=== PATIENT | female | born 1955 | race Caucasian/White ===

== ENCOUNTER 2020-11-20 13:59 | Outpatient (CLI) | payer BC, SELFPAY ==
--- NOTE | ~2020-11-20 | MM_ITS ---
EXAMINATION: MM screening radha BI w hugo HISTORY: Screening mammogram, family history of breast cancer in her daughter. TECHNIQUE: Craniocaudal and mediolateral oblique 3-D tomosynthesis images were obtained and synthetic 2-D images were generated. CAD analysis was submitted and interpreted. COMPARISON: 06/16/2019, 07/22/2017, 04/24/2016 BREAST PARENCHYMAL COMPOSITION: There are scattered areas of fibroglandular density. FINDINGS: RIGHT BREAST: There is a possible mass in the posterior third of the upper outer quadrant of the righ t breast. LEFT BREAST: There is no evidence of suspicious mass, calcification, or architectural distortion to s uggest malignancy. There has been no significant interval change. IMPRESSION: 1. Possible right breast mass. 2. Additional mammographic views and possible breast ultrasound are recommended. BI-RADS Category 0: Incomplete: Needs additional imaging evaluation. Reviewed, dictated and finalized at location A. IMPRESSION: 1. Possible right breast mass. 2. Additional mammographic views and possible breast ultrasound are recommended . BI-RADS Category 0: Incomplete: Needs additional imaging evaluation.
== END 2020-11-20 14:00 | disposition home or self-care (01) ==
LOC: ANHIMG 14:04
PROVIDERS: PCP Internal Medicine
DX: Z12.31 Encounter for screening mammogram for malignant neoplasm of breast (principal); R92.8 Other abnormal and inconclusive findings on diagnostic imaging of breast
CPT/HCPCS: 77063; 77067

== ENCOUNTER 2020-12-13 12:25 | Outpatient (CLI) | payer BC, SELFPAY ==
--- NOTE | ~2020-12-13 | MMUS_ITS ---
EXAMINATION: MM diagnostic mammo unilat RT, US breast RT limited HISTORY: Possible right breast mass on screening mammogram TECHNIQUE: Additional 3-D tomosynthesis images of the right breast were performed and synthetic 2-D i mages were generated. CAD analysis was submitted and interpreted. High resolution limited right breas t ultrasound was performed. COMPARISON: 11/21/2019, 06/16/2019, 07/22/2017, 04/24/2016 FINDINGS: MAMMOGRAPHIC FINDINGS: There is architectural distortion in the posterior third of the upper outer quadrant of the breast at the 11:00 location 12 cm from the nipple. No definite mass or suspicious calcification is identified . ULTRASOUND: There is no evidence of focal abnormal solid or cystic mass in the vicinity of the mammographic findi ng in question. IMPRESSION: 1. Architectural distortion in the upper-outer quadrant of the right breast. 2. Tomosynthesis guided right breast biopsy is recommended. BI-RADS category 4, suspicious findings. Reviewed, dictated and finalized at location A. IMPRESSION: 1. Architectural distortion in the upper-outer quadrant of the right breast. 2. Tomosynthesis guided right breast biopsy is recommended. BI-RADS category 4, suspicious findings.
== END 2020-12-13 12:26 | disposition home or self-care (01) ==
LOC: ANHIMG 12:29
PROVIDERS: PCP Internal Medicine
DX: R92.8 Other abnormal and inconclusive findings on diagnostic imaging of breast (principal)
CPT/HCPCS: 76642; 77065

== ENCOUNTER 2022-01-19 13:25 | Emergency (ER) | payer BC, SELFPAY ==
--- NOTE | ~2022-01-19 | XR_ITS ---
XR chest 1V portable DATE: 01/19/2022 14:13 INDICATION: Cough, fever, body aches for one day. Sore throat, earaches for a week TECHNIQUE: Portable upright AP chest on 01/19/2022 at 1411 hours COMPARISON: October 11, 2014 PA and lateral chest FINDINGS: Normal heart size. No hilar or mediastinal enlargement. Mild infiltrate or atelectasis in the left lower lung. No pulmonary infiltrate or consolidation, pleu ral effusion or pulmonary mass congestion or pneumothorax is noted otherwise. IMPRESSION: Mild infiltrate or atelectasis in the left lower lung Reviewed, dictated and finalized at location A.
[2022-01-19 13:30] VITALS: BP 122/59; PULSE 82; RESP 16; TEMP 36.8; O2SAT 97
--- NOTE | 2022-01-19 13:46 | ED.GENADULT ---
HPI - General Adult General Chief complaint: Dizziness Stated complaint: fever, sore throat, ear pain, headache, dizzy History of Present Illness HPI narrative: Irina is a 66F with a PMH of depression, thyroid cancer s/p surgery, HTN, and GERD that presented to the ED with a week of headache, body aches, sinus congestion, runny nose and sore throat. Yesterday she started having a productive cough and fevers up to 100.7. It came down with Tylenol. There is no CP, N/V or syncope. Related Data Home Medications Medication Instructions Recorded Confirmed escitalopram oxalate 20 mg tablet 20 tablet PO DAILY 01/19/22 01/19/22 gabapentin 600 mg tablet 600 mg PO DAILY 01/19/22 01/19/22 levothyroxine 50 mcg tablet 1.5 tablet PO DAILY 01/19/22 01/19/22 lisinopril 20 20 tablet PO DAILY 01/19/22 01/19/22 mg-hydrochlorothiazide 12.5 mg tablet nortriptyline 25 mg capsule 25 cap PO DAILY 01/19/22 01/19/22 pantoprazole 40 mg tablet,delayed 40 tablet PO DAILY 01/19/22 01/19/22 release trazodone 300 mg tablet 300 tablet PO BID 01/19/22 01/19/22 Allergies Allergy/AdvReac Type Severity Reaction Status Date / Time hydrocodone Allergy Severe Other Verified 01/19/22 13:41 morphine Allergy Severe Other Verified 01/19/22 13:41 Penicillins Allergy Unknown Itching Verified 01/19/22 13:41 Review of Systems Constitutional: Constitutional: Reports chills, Reports fatigue, Reports fever(s) and Reports weakness Eyes: Eyes: Reports no additional eye complaints ENT: Reports as per HPI Cardiovascular: Cardiovascular: Reports no additional cardiovascular complaints Respiratory: Respiratory: Reports as per HPI Gastrointestinal: Gastrointestinal: Reports no additional gastrointestinal complaints Genitourinary: Genitourinary: Reports no additional female genitourinary complaints Musculoskeletal: Musculoskeletal: Reports no additional musculoskeletal complaints Integumentary/Breasts: Skin/Breast: Reports system reviewed and no additional complaints, except as docu Neurologic: Reports system reviewed and no additional complaints, except as documented Psychiatric: Psychiatric: Reports no additional psychiatric complaints Endocrine: Endocrine: Reports no additional endocrine complaints Hematologic/Lymphatic: Hematologic/Lymphatic: Reports no additional hematologic/lymphatic complaints Allergic/Immunologic: Allergic/Immunologic: Reports no additional allergic/immunologic complaints Exam Const: Nutritional Appearance: well nourished Other: mild distress HENMT: Head: normal to inspection General nose exam: Normal external nose present Other: erythematous nasal turbinates, moist mucous membranes, posterior pharynx cobblestoning Eyes: Conjunctivae: conjunctivae normal Pupils: Equal, round and reactive pupils present Neck: Other: right anterior cervical lymphadenopathy and sub mandibular lymphadenopathy Chest: Chest palpation & inspection: normal inspection of the chest Resp: Effort & Inspection: normal respiratory effort Auscultation: clear to auscultation bilaterally Cardio: Rate: regular rate Rhythm: regular rhythm GI: Other: No tenderness or guarding Skin: General skin exam: normal color Neuro: General: patient oriented x3, moves all extremities and no meningeal signs Psych: Mental Status: mental status grossly normal Course Course Emergency Course: Labs showed leukocytosis XR chest 1V portable DATE: 01/19/2022 14:13 INDICATION: Cough, fever, body aches for one day. Sore throat, earaches for a week? TECHNIQUE: Portable upright AP chest on 01/19/2022 at 1411 hours? COMPARISON: October 11, 2014 PA and lateral chest? FINDINGS: Normal heart size. No hilar or mediastinal enlargement. Mild infiltrate or atelectasis in the left lower lung. No pulmonary infiltrate or consolidation, pleural effusion or pulmonary mass congestion or pneumothorax is noted otherwise.? IMPRESSION: Mild infiltrate or atelectasis in the
[2022-01-19 14:02] LABS: Basophils Absolute Auto 0.04 K/mm3 (0.00-0.10); Basophils Percent Auto 0.3 % (0.0-1.0); Eosinophils Absolute Auto 0.06 K/mm3 (0.02-0.50); Eosinophils Percent Auto 0.5 % (1.0-6.0); Hematocrit 35.3 % (35.0-49.0); Hemoglobin 11.9 g/dL (12.0-15.0); Immature Granulocyte Absolute 0.05 K/mm3 (0.00-0.00); Immature Granulocyte Percent A 0.4 % (0.0-0.0); Lymphocytes Absolute Auto 1.89 K/mm3 (1.10-4.50); Lymphocytes Percent Auto 14.4 % (18.0-42.0); Mean Corpuscular HGB Conc 33.7 g/dL (32.0-36.0); Mean Corpuscular Hemoglobin 34.3 pg (27.0-31.0); Mean Corpuscular Volume 101.7 fL (78.0-102.0); Mean Platelet Volume 8.5 fl (9.2-11.8); Monocytes Absolute Auto 0.95 K/mm3 (0.10-0.90); Monocytes Percent Auto 7.3 % (2.0-11.0); Neutrophils Absolute Auto 10.1 K/mm3 (1.7-7.2); Neutrophils Percent Auto 77.1 % (50.0-70.0); Platelet Count Result 246 K/mm3 (150-420); Red Blood Count 3.47 M/mm3 (4.20-5.40); Red Cell Distribution Width 12.7 % (11.6-14.4); White Blood Count 13.1 K/mm3 (4.8-10.8)
[2022-01-19 14:18] LABS: Alanine Aminotransferase 12 U/L (14-59); Albumin Level 2.8 g/dL (3.4-5.0); Alkaline Phosphatase 60 U/L (46-116); Anion Gap 4 mmol/L (8-16); Aspartate Amino Transferase < 10 U/L (15-37); Bilirubin,Total 0.3 mg/dL (0.00-1.00); Blood Urea Nitrogen 14 mg/dL (7-18); Calcium 8.5 mg/dL (8.5-10.1); Carbon Dioxide 30 mmol/L (21-32); Chloride 101 mmol/L (98-108); Estimated CRCL calculation 51 ml/min; Estimated Glomerular Filt Rate > 60; Glucose 105 mg/dL (70-99); Osmolality Calculated 280 mOsm/kg (285-295); Potassium 3.3 mmol/L (3.5-5.1); Sodium 135 mmol/L (136-145)
[2022-01-19 14:26] LABS: SARS-CoV-2 Ag Negative (Negative)
[2022-01-19 14:30] VITALS: BP 125/66; PULSE 84; RESP 16; TEMP 36.8; O2SAT 97
[2022-01-19 14:31] LABS: Influenza Control Valid (Valid)
[2022-01-19] MEDS: levoFLOXacin TAB 500 MG, levoFLOXacin TAB 250 MG 750 MG PO (14:50)
[2022-01-19] MEDS: KETOROLAC 30 MG/ML VIAL (*BKC) IM (14:50)
== END 2022-01-19 14:55 | disposition home or self-care (01) ==
PROVIDERS: Emergency Provider Family Medicine; PCP Internal Medicine
DX: J18.9 Pneumonia, unspecified organism (principal); Z20.822 Contact with and (suspected) exposure to COVID-19
CPT/HCPCS: 71045; 80053; 85025; 87081; 87426; 87804; 87880; 96372; 99283; A9270; C9803; J1885

== ENCOUNTER 2022-07-01 11:37 | Emergency (ER) | payer MEDICARE, OTHER, SELFPAY ==
[2022-07-01] VITALS (7 sets, daily range): BP systolic 107–142; BP diastolic 64–79; PULSE 73–98; RESP 18–22; TEMP 36.1; O2SAT 95–99
--- NOTE | ~2022-07-01 | XR_ITS ---
EXAMINATION: XR chest 1V portable INDICATION: Cough and shortness of breath TECHNIQUE: Portable AP chest at 1214 hours COMPARISON: 01/19/2022 FINDINGS: The lungs are free of acute opacities. A calcified nodule of the left lung is consistent wi th old granulomatous disease. No pleural effusion or pneumothorax. The cardiomediastinal silhouette i s normal. The visualized bones and soft tissues are unremarkable. Surgical clips in the right upper quadrant are likely from prior cholecystectomy. IMPRESSION: 1. No acute cardiopulmonary abnormality. Reviewed, dictated and finalized at location B. TION MECHANIC
--- NOTE | 2022-07-01 11:56 | ECG_ITS ---
Measurements Intervals [place] Rate: 83 P: 52 [place]: 124 QRS: 59 QRSD: 80 T: 73 QT: 364 QTc: 429 Interpretive Statements SINUS RHYTHM WITH SINUS ARRHYTHMIA BASELINE WANDER- I, II, III, AVR, AVL, AVF, V1-V6 NORMAL ECG NO PREVIOUS ECG AVAILABLE FOR COMPARISON Electronically Signed On 07-01-2022 13:27:26 [address] LIGHT REPAIRER by Franco Savage D.O.
--- NOTE | 2022-07-01 12:00 | ED.GENADULT ---
HPI - General Adult General Chief complaint: Upper Respiratory Infection Stated complaint: COUGH Time Seen by Provider: 07/01/22 11:51 History of Present Illness HPI narrative: Irina is a 66F with a PMH of depression, thyroid cancer s/p surgery, HTN, tobacco abuse and GERD that presented to the ED with a cough, and dyspnea. She had pneumonia in April, and had the flu 10 days ago. She got better but started to have the cough a few days ago and it has become worse. Her primary care doctor started her on steroids but these have not helped. There is no CP, lightheadedness, syncope, nausea or vomiting. Related Data Home Medications Medication Instructions Recorded Confirmed escitalopram oxalate 20 mg tablet 20 tablet PO DAILY 01/19/22 07/01/22 gabapentin 600 mg tablet 600 mg PO DAILY 01/19/22 07/01/22 levothyroxine 50 mcg tablet 1.5 tablet PO DAILY 01/19/22 07/01/22 lisinopril 20 20 tablet PO DAILY 01/19/22 07/01/22 mg-hydrochlorothiazide 12.5 mg tablet nortriptyline 25 mg capsule 25 cap PO DAILY 01/19/22 07/01/22 pantoprazole 40 mg tablet,delayed 40 tablet PO DAILY 01/19/22 07/01/22 release trazodone 300 mg tablet 300 tablet PO BID 01/19/22 07/01/22 Allergies Allergy/AdvReac Type Severity Reaction Status Date / Time hydrocodone Allergy Severe Other Verified 07/01/22 11:55 morphine Allergy Severe Other Verified 07/01/22 11:55 Penicillins Allergy Unknown Itching Verified 07/01/22 11:55 Review of Systems Review of Systems: All systems reviewed & are unremarkable except as noted in HPI and below Exam Const: General: healthy appearing and no acute distress Nutritional Appearance: well nourished Orientation/consciousness: patient oriented x3 HENMT: Head: normal to inspection Ears: external ears normal Face/Nose/Sinus: Normal external nose present Eyes: Conjunctivae: conjunctivae normal Pupils: Equal, round and reactive pupils present Neck: Neck: normal visual inspection Chest: Chest palpation & inspection: normal inspection of the chest Resp: Other: Increased respiratory effort with a constant cough, diffuse wheezing and prolonged expiratory phase Cardio: Rate: tachycardic Rhythm: regular rhythm GI: Inspection: non-distended GI Palp: Yes Soft to palpation and No Tenderness to palpation present (GI) Skin: General skin exam: normal color Rashes: no rashes Neuro: General: patient oriented x3 and moves all extremities Extrem: General: normal to inspection Psych: Mental Status: mental status grossly normal Course Course Emergency Course: EKG showed NSR with a rate of 83, normal axis and no ST elevation/depression. Interpretation is difficult with wandering baseline. EXAMINATION: XR chest 1V portable INDICATION: Cough and shortness of breath TECHNIQUE: Portable AP chest at 1214 hours COMPARISON: 01/19/2022 FINDINGS: The lungs are free of acute opacities. A calcified nodule of the left lung is consistent with old granulomatous disease. No pleural effusion or pneumothorax. The cardiomediastinal silhouette is normal. The visualized bones and soft tissues are unremarkable.? Surgical clips in the right upper quadrant are likely from prior cholecystectomy. IMPRESSION: 1. No acute cardiopulmonary abnormality. Labs showed slight leukocytosis but were largely unremarkable. Flu and COVID were negative. She was given 2 breathing treatments, prednisone and azithromycin. We discussed admission for continued treatments vs going home with inhalers. She felt safe going home and was able to tolerate PO. Vital Signs Vital signs: Vital Signs Temperature 96.9 F L 07/01/22 11:40 Pulse Rate 92 07/01/22 11:40 Respiratory Rate 20 07/01/22 11:40 Blood Pressure 142/79 H 07/01/22 11:40 Pulse Oximetry 95 07/01/22 11:40 Oxygen Delivery Room Air 07/01/22 11:40 Temperature 96.9 F L 07/01/22 11:40 Pulse Rate 73 07/01/22 13:35 Respiratory Rate 20 07/01/22 13:35 Blood Pressure 107/64 07/01/22
[2022-07-01] MEDS: IPRATROPIUM 0.5 MG/ALBUTEROL SULFATE 2.5 MG AMPUL.NEB 3 ML INHALATION (12:05)
--- NOTE | 2022-07-01 12:21 | PC.NURSE ---
ICE CHIPS PROVIDED
[2022-07-01 12:22] LABS: Basophils Absolute Auto 0.04 K/mm3 (0.00-0.10); Basophils Percent Auto 0.3 % (0.0-1.0); Eosinophils Absolute Auto 0.03 K/mm3 (0.02-0.50); Eosinophils Percent Auto 0.3 % (1.0-6.0); Hematocrit 41.7 % (35.0-42.0); Hemoglobin 14.3 g/dL (11.7-13.8); Immature Granulocyte Percent A 0.9 % (0.0-0.0); Lymphocytes Absolute Auto 2.67 K/mm3 (1.10-4.50); Lymphocytes Percent Auto 22.9 % (18.0-42.0); Mean Corpuscular HGB Conc 34.3 g/dL (32.0-36.0); Mean Corpuscular Hemoglobin 34.1 pg (27.0-31.0); Mean Corpuscular Volume 99.5 fL (78.0-102.0); Mean Platelet Volume 8.2 fl (9.2-11.8); Monocytes Absolute Auto 0.52 K/mm3 (0.10-0.90); Monocytes Percent Auto 4.5 % (2.0-11.0); Neutrophils Absolute Auto 8.3 K/mm3 (1.7-7.2); Neutrophils Percent Auto 71.1 % (50.0-70.0); Platelet Count Result 401 K/mm3 (150-420); Red Blood Count 4.19 M/mm3 (4.20-5.40); Red Cell Distribution Width 12.3 % (11.6-14.4); White Blood Count 11.7 K/mm3 (4.8-10.8)
[2022-07-01 12:39] LABS: Lactic Acid Reflex 1.8 mmol/L (0.4-2.0)
[2022-07-01 12:42] LABS: Troponin I 4.1 ng/L (0.00-60.4)
[2022-07-01 12:43] LABS: Alanine Aminotransferase 17 U/L (14-59); Albumin Level 3.6 g/dL (3.4-5.0); Alkaline Phosphatase 52 U/L (46-116); Anion Gap 8 mmol/L (8-16); Aspartate Amino Transferase 11 U/L (15-37); Bilirubin,Total 0.3 mg/dL (0.00-1.00); Blood Urea Nitrogen 25 mg/dL (7-18); Calcium 9.5 mg/dL (8.5-10.1); Carbon Dioxide 28 mmol/L (21-32); Chloride 106 mmol/L (98-108); Estimated CRCL calculation 41 ml/min; Estimated Glomerular Filt Rate 53; Glucose 128 mg/dL (70-99); NT Pro B Type Natriuretic Pept 54 pg/mL (0-125); Osmolality Calculated 300 mOsm/kg (285-295); Potassium 3.6 mmol/L (3.5-5.1); Sodium 142 mmol/L (136-145); Total Protein 6.5 g/dL (6.4-8.2)
--- NOTE | 2022-07-01 12:56 | PC.NURSE ---
CARDIO PULMONARY NOTIFIED FOR 2ND NEB TX. PT IS SITTING ON STRETCHER IN EXAM ROOM, COUGH REMAINS, HOWEVER IS NOT FREQUENT. PT DENIES ANY NEEDS OR COMPLAINTS. WILL CONTINUE TO MONITOR.
[2022-07-01 12:57] LABS: SARS-CoV-2 RNA PCR Negative (Negative)
[2022-07-01 12:59] LABS: Influenza A QL RT-PCR Negative (Negative); Influenza B QL RT-PCR Negative (Negative)
[2022-07-01] MEDS: ALBUTEROL SULFATE NEB 2.5 MG/3 ML INH INHALATION (13:00)
--- NOTE | 2022-07-01 13:15 | PC.NURSE ---
ERP AT BEDSIDE.
[2022-07-01] MEDS: AZITHROMYCIN 250 MG TABLET 500 MG PO (13:30)
[2022-07-01] MEDS: predniSONE 40 MG, predniSONE 10 MG 50 MG PO (13:31)
== END 2022-07-01 13:35 | disposition home or self-care (01) ==
PROVIDERS: Emergency Provider Family Medicine; PCP Internal Medicine
DX: J44.9 Chronic obstructive pulmonary disease, unspecified (principal); Z20.822 Contact with and (suspected) exposure to COVID-19; R06.00 Dyspnea, unspecified; I10 Essential (primary) hypertension; K21.9 Gastro-esophageal reflux disease without esophagitis; F17.200 Nicotine dependence, unspecified, uncomplicated
CPT/HCPCS: 36415; 71045; 80053; 83605; 83880; 84484; 85025; 87502; 93005; 94640; 99283; A9270; J7512; U0003; U0005

== ENCOUNTER 2022-09-27 11:02 | Emergency (ER) | payer MEDICARE, OTHER, SELFPAY ==
[2022-09-27] VITALS (29 sets, daily range): BP systolic 104–128; BP diastolic 49–75; PULSE 59–78; RESP 16–18; TEMP 36.6–37; O2SAT 95–100
--- NOTE | ~2022-09-27 | CT_ITS ---
EXAMINATION: CT diagnostic chest w con DATE: 09/27/2022 13:25 INDICATION: Left upper chest pain, abnormal chest radiograph, history of thyroid and breast cancer TECHNIQUE: Transaxial computed tomographic images of the chest were obtained after the administration of 75 cc of Omnipaque 350 intravenous contrast. The dose-length product (DLP) was 128.23 mGy-cm. Ite rative reconstruction was used. COMPARISON: None FINDINGS: No suspicious CT correlate is identified for the reported right lung opacity on earlier diya st radiograph. There is a 3 mm nodule of the left upper lobe. The lungs are free of acute opacities. No pleural effusion or pneumothorax. There is mild atelectasis or scarring of the lingula. Changes of bilateral mastectomy are noted. There is a small pericardial effusion. There is an 11 mm cyst of the left hepatic lobe. The gallbladder is surgically absent. There is mild thoracic spondylosis. IMPRESSION: 1. No suspicious CT correlate identified for the chest radiographic finding. 2. Small pericardial effusion. Reviewed, dictated and finalized at location A. Y GO ROUND OPERATOR
--- NOTE | ~2022-09-27 | XR_ITS ---
EXAMINATION: XR chest 2V DATE: 09/27/2022 11:35 INDICATION: Left upper chest pain TECHNIQUE: PA and lateral views of the chest are obtained. COMPARISON: 07/01/2022 FINDINGS: A subtle opacity is present in the right lower lung zone on the PA view. No pleural effusio n or pneumothorax. The cardiomediastinal silhouette is normal. There is mild thoracic spondylosis. Barrera rgical clips in the right upper quadrant are likely from prior cholecystectomy. IMPRESSION: 1. Subtle opacity of the right lower lung zone on the PA view. Follow-up with CT of the chest is hubert mmended. Reviewed, dictated and finalized at location A. ORGAN TECHNICIAN IMPRESSION: 1. Subtle opacity of the right lower lung zone on the PA view. Follow-up with C T of the chest is recommended.
--- NOTE | 2022-09-27 11:09 | ED.CHESTPAIN ---
HPI - Chest Pain General Chief Complaint: Chest Pain Stated Complaint: chest pain Time Seen by Provider: 09/27/22 11:03 Source: patient and RN notes reviewed Mode of arrival: ambulatory Limitations: no limitations History of Present Illness HPI narrative: Patient states that she had some epigastric pain this morning. She has a history of esophageal spasms but then had a sharp pain in her left chest with some mild nausea and mild shortness of breath at the time. It spontaneously resolved and was only about a 4/10. She denies any diaphoresis or radiation. She does not have history of coronary artery disease. complaint: chest pain Onset (ago): hour(s) (1) Timing of current episode: episodic Prior episodes: No Onset: during rest Pain location: left chest and epigastric Pain radiation: none Pain scale (0-10): 4 Quality: aching and dull Relieving factors: nothing Exacerbating factors: nothing Associated symptoms: nausea (a little) and dyspnea (very mild) Treatment prior to arrival: none Risk Factors Coronary artery disease risk factors: smoking history Thoracic aortic dissection risk factors: none Pulmonary embolism risk factors: malignancy Related Data Home Medications Medication Instructions Recorded Confirmed escitalopram oxalate 20 mg tablet 20 tablet PO DAILY 01/19/22 09/27/22 gabapentin 600 mg tablet 600 mg PO DAILY 01/19/22 09/27/22 levothyroxine 50 mcg tablet 1.5 tablet PO DAILY 01/19/22 09/27/22 nortriptyline 25 mg capsule 25 cap PO DAILY 01/19/22 09/27/22 pantoprazole 40 mg tablet,delayed 40 tablet PO DAILY 01/19/22 09/27/22 release trazodone 300 mg tablet 300 tablet PO BID 01/19/22 09/27/22 Allergies Allergy/AdvReac Type Severity Reaction Status Date / Time hydrocodone Allergy Severe Other Verified 09/27/22 11:18 morphine Allergy Severe Other Verified 09/27/22 11:18 Penicillins Allergy Unknown Itching Verified 09/27/22 11:18 Review of Systems Review of Systems: All systems reviewed & are unremarkable except as noted in HPI and below Constitutional: Constitutional: Denies excessive sweating Cardiovascular: Cardiovascular: Denies rapid heart rate Respiratory: Respiratory: Denies cough Gastrointestinal: Gastrointestinal: Denies vomiting [facility] Past Medical History Medical History (Updated 09/27/22 @ 14:39 by Alex Bales MD) Breast cancer Mitral valve prolapse Thyroid cancer Surgical History Surgical History (Updated 09/27/22 @ 11:11 by Alex Bales MD) H/O bilateral mastectomy H/O partial thyroidectomy Exam Const: General: healthy appearing, no acute distress and alert Nutritional Appearance: well nourished and thin Orientation/consciousness: patient oriented x3 Limitations: no limitations HENMT: Head: normal to inspection Ears: external ears normal Eyes: Conjunctivae: conjunctivae normal Pupils: Equal, round and reactive pupils present EOM: EOMs intact bilaterally Neck: Neck: normal visual inspection Resp: Effort & Inspection: normal respiratory effort Auscultation: clear to auscultation bilaterally Cardio: Rate: regular rate Rhythm: regular rhythm Heart sounds: Murmur heart sound present diastolic late, decrescendo, II/ and at the base GI: GI Palp: Yes Soft to palpation and No Tenderness to palpation present (GI) Auscultation: normal bowel sounds Back/Spine/Pelvis: Cervical Spine: cervical ROM normal Thoracic/Lumbar Spine: thoraco-lumbar ROM normal Skin: General skin exam: normal color Rashes: no rashes Neuro: General: patient oriented x3, moves all extremities, no focal motor deficits and CN's II-XI intact bilaterally Speech: normal speech Gait exam (Neuro): Normal gait present Extrem: General: normal to inspection and no clubbing, cyanosis or edema Psych: Mental Status: mental status grossly normal Affect: normal affect Attitude: cooperative Course Vital Signs Vital signs: Vital Signs Temperature 37.0 C 09/27/22 11:04 Pulse Rate 6
--- NOTE | 2022-09-27 11:16 | ECG_ITS ---
Measurements Intervals [place] Rate: 65 P: 47 [place]: 132 QRS: 55 QRSD: 74 T: 60 QT: 417 QTc: 436 Interpretive Statements SINUS RHYTHM WITH OCCASIONAL SUPRAVENTRICULAR PREMATURE COMPLEXES COMPARED TO ECG 07/01/2022 12:10:53 ABNORMAL ECG NO SIGNIFICANT CHANGES Electronically Signed On 09-27-2022 11:28:17 DRAFT[employer] LAYOUT WORKER by Isaac Johnson M.D.
[2022-09-27] MEDS: ASPIRIN 81 MG CHEWABLE TABLET 324 MG PO (11:30)
[2022-09-27 11:59] LABS: Basophils Absolute Auto 0.07 K/mm3 (0.00-0.10); Basophils Percent Auto 0.8 % (0.0-1.0); Eosinophils Absolute Auto 0.12 K/mm3 (0.02-0.50); Eosinophils Percent Auto 1.4 % (1.0-6.0); Hematocrit 37.9 % (35.0-42.0); Hemoglobin 12.8 g/dL (11.7-13.8); Immature Granulocyte Absolute 0.05 K/mm3 (0.00-0.00); Immature Granulocyte Percent A 0.6 % (0.0-0.0); Lymphocytes Absolute Auto 2.61 K/mm3 (1.10-4.50); Lymphocytes Percent Auto 30.8 % (18.0-42.0); Mean Corpuscular HGB Conc 33.8 g/dL (32.0-36.0); Mean Corpuscular Hemoglobin 34.3 pg (27.0-31.0); Mean Corpuscular Volume 101.6 fL (78.0-102.0); Mean Platelet Volume 8.4 fl (9.2-11.8); Monocytes Absolute Auto 0.47 K/mm3 (0.10-0.90); Monocytes Percent Auto 5.5 % (2.0-11.0); Neutrophils Absolute Auto 5.2 K/mm3 (1.7-7.2); Neutrophils Percent Auto 60.9 % (50.0-70.0); Platelet Count Result 306 K/mm3 (150-420); Red Blood Count 3.73 M/mm3 (4.20-5.40); Red Cell Distribution Width 12.4 % (11.6-14.4); White Blood Count 8.5 K/mm3 (4.8-10.8)
[2022-09-27 12:12] LABS: Partial Thromboplastin Time 26.2 SEC (23.90-30.70); Prothrombin Time 11.1 Seconds (9.50-12.10)
[2022-09-27 12:20] LABS: Albumin Level 3.1 g/dL (3.4-5.0); Alkaline Phosphatase 49 U/L (46-116); Anion Gap 7 mmol/L (8-16); Aspartate Amino Transferase < 10 U/L (15-37); Bilirubin,Total 0.3 mg/dL (0.00-1.00); Blood Urea Nitrogen 15 mg/dL (7-18); Calcium 8.2 mg/dL (8.5-10.1); Carbon Dioxide 31 mmol/L (21-32); Chloride 107 mmol/L (98-108); Estimated CRCL calculation 47 ml/min; Estimated Glomerular Filt Rate > 60; Glucose 102 mg/dL (70-99); NT Pro B Type Natriuretic Pept 56 pg/mL (0-125); Osmolality Calculated 300 mOsm/kg (285-295); Potassium 3.3 mmol/L (3.5-5.1); Sodium 145 mmol/L (136-145); Total Protein 5.5 g/dL (6.4-8.2)
[2022-09-27 12:23] LABS: Alanine Aminotransferase < 6 U/L (14-59)
[2022-09-27 12:24] LABS: Troponin I 5.2 ng/L (0.00-60.4)
[2022-09-27] MEDS: POTASSIUM BICARBONATE 25 MEQ TABEF PO (12:39)
[2022-09-27 14:25] LABS: Troponin I 5.2 ng/L (0.00-60.4)
== END 2022-09-27 14:47 | disposition home or self-care (01) ==
PROVIDERS: Emergency Provider Emergency Medicine; PCP Internal Medicine
DX: R07.89 Other chest pain (principal); R06.00 Dyspnea, unspecified; Z85.3 Personal history of malignant neoplasm of breast; Z85.850 Personal history of malignant neoplasm of thyroid
CPT/HCPCS: 36415; 71046; 71260; 80053; 83880; 84484; 85025; 85610; 85730; 93005; 99284; A9270; Q9967

== ENCOUNTER 2023-03-08 20:49 | Emergency (ER) | payer MEDICARE, OTHER, SELFPAY ==
[2023-03-08 20:50] VITALS: BP 135/62; PULSE 58; RESP 18; TEMP 36.3; O2SAT 98
--- NOTE | 2023-03-08 21:17 | ED.GENADULT ---
HPI - General Adult General Chief complaint: Headache Stated complaint: Migraine History of Present Illness HPI narrative: 68yo woman h/o migraine headaches presents with severe headache onset this afternoon after working outside all morning and midday, thinks she got dehydrated and took too much sun. +nauseous. No fever, chills, chest pain, or dyspnea. No focal numbnes or weakness. Related Data Home Medications Medication Instructions Recorded Confirmed escitalopram oxalate 20 mg tablet 20 tablet PO DAILY 01/19/22 09/27/22 gabapentin 600 mg tablet 600 mg PO DAILY 01/19/22 09/27/22 levothyroxine 50 mcg tablet 1.5 tablet PO DAILY 01/19/22 09/27/22 nortriptyline 25 mg capsule 25 cap PO DAILY 01/19/22 09/27/22 pantoprazole 40 mg tablet,delayed 40 tablet PO DAILY 01/19/22 09/27/22 release trazodone 300 mg tablet 300 tablet PO BID 01/19/22 09/27/22 Allergies Allergy/AdvReac Type Severity Reaction Status Date / Time hydrocodone Allergy Severe Other Verified 03/08/23 20:57 morphine Allergy Severe Other Verified 03/08/23 20:57 Penicillins Allergy Unknown Itching Verified 03/08/23 20:57 Review of Systems Review of Systems: All systems reviewed & are unremarkable except as noted in HPI and below Constitutional: Constitutional: Denies chills and Denies fever(s) ENT: Denies dysphagia Cardiovascular: Cardiovascular: Denies chest pain Respiratory: Respiratory: Denies chest congestion and Denies dyspnea Gastrointestinal: Gastrointestinal: Denies abdominal pain PMFSH Past Medical History Medical History Breast cancer Mitral valve prolapse Thyroid cancer Surgical History Surgical History H/O bilateral mastectomy H/O partial thyroidectomy Exam Const: General: healthy appearing and alert Nutritional Appearance: well nourished Eyes: Conjunctivae: conjunctivae normal Neck: Neck: no meningeal signs Resp: Effort & Inspection: normal respiratory effort and not labored Auscultation: clear to auscultation bilaterally Cardio: Rate: regular rate Rhythm: regular rhythm Heart sounds: no murmurs GI: Inspection: non-distended Skin: General skin exam: normal color, no jaundice and no pallor Neuro: General: patient oriented x3, moves all extremities and no focal motor deficits Extrem: General: no clubbing, cyanosis or edema Course Vital Signs Vital signs: Vital Signs Temperature 36.3 C L 03/08/23 20:50 Pulse Rate 58 L 03/08/23 20:50 Respiratory Rate 18 03/08/23 20:50 Blood Pressure 135/62 03/08/23 20:50 Pulse Oximetry 98 03/08/23 20:50 Oxygen Delivery Room Air 03/08/23 20:50 Temperature 36.3 C L 03/08/23 20:50 Pulse Rate 58 L 03/08/23 20:50 Respiratory Rate 18 03/08/23 20:50 Blood Pressure 135/62 03/08/23 20:50 Pulse Oximetry 98 03/08/23 20:50 Oxygen Delivery Room Air 03/08/23 20:50 Medical Decision Making MDM Narrative Medical decision making narrative: acute headache DDx heat exhaustion, dehydration, migraine headache, muscle tension headache. No evidence of meningismus or of cerebrovascular accident. Vital Signs Vital Signs: Vital Signs Temperature 36.3 C L 03/08/23 20:50 Pulse Rate 58 L 03/08/23 20:50 Respiratory Rate 18 03/08/23 20:50 Blood Pressure 135/62 03/08/23 20:50 Pulse Oximetry 98 03/08/23 20:50 Oxygen Delivery Room Air 03/08/23 20:50 Temperature 36.3 C L 03/08/23 20:50 Pulse Rate 58 L 03/08/23 20:50 Respiratory Rate 18 03/08/23 20:50 Blood Pressure 135/62 03/08/23 20:50 Pulse Oximetry 98 03/08/23 20:50 Oxygen Delivery Room Air 03/08/23 20:50 Discharge Plan Discharge Clinical Impression: Migraine Qualifiers: Migraine type: with aura Status migrainosus presence: without status migrainosus Intractability: not intractable Qualified Code(s): G43.109 - Migraine with aura,
[2023-03-08] MEDS: KETOROLAC 30 MG/ML VIAL (*BKC) IV PUSH (21:25)
[2023-03-08] MEDS: METOCLOPRAMIDE HCL INJ 10 MG/2 ML VIAL IV PUSH (21:26)
[2023-03-08] MEDS: SODIUM CHLORIDE 0.9% IV 1,000 ML 999 ML IV CONT (21:26)
[2023-03-08] MEDS: diphenhydrAMINE HCl INJ 50 MG/ML VIAL 25 MG IV PUSH (21:26)
[2023-03-08 22:40] VITALS: PULSE 75; RESP 18; O2SAT 96
== END 2023-03-08 22:40 | disposition home or self-care (01) ==
PROVIDERS: Emergency Provider Emergency Medicine; PCP Internal Medicine
DX: G43.109 Migraine with aura, not intractable, without status migrainosus (principal); T67.5XXA Heat exhaustion, unspecified, initial encounter; Z85.850 Personal history of malignant neoplasm of thyroid; Z85.3 Personal history of malignant neoplasm of breast
CPT/HCPCS: 96361; 96374; 96375; 99284; J1100; J1200; J1885; J2765; J7030

== ENCOUNTER 2023-07-09 18:05 | Emergency (ER) | payer MEDICARE, OTHER, SELFPAY ==
[2023-07-09 18:05] VITALS: BP 135/61; PULSE 66; RESP 16; TEMP 36.5; O2SAT 98
--- NOTE | 2023-07-09 18:16 | ED.HA ---
HPI - Headache General Chief Complaint: Headache Stated Complaint: migraine Time Seen by Provider: 07/09/23 18:16 Source: patient Mode of arrival: ambulatory Limitations: no limitations History of Present Illness MD elicited complaint: headache and migraine Pertinent past history: migraines Onset (ago): day(s) (2) Onset description: gradually Location: right, frontal and temporal Severity: moderate Quality & Timing: throbbing and steady Exacerbating factors: none Relieving factors: nothing Context: occurred at rest Associated symptoms: nausea Treatments prior to arrival: migraine medication Related Data Home Medications Medication Instructions Recorded Confirmed escitalopram oxalate 20 mg tablet 20 tablet PO DAILY 01/19/22 09/27/22 gabapentin 600 mg tablet 600 mg PO DAILY 01/19/22 09/27/22 levothyroxine 50 mcg tablet 1.5 tablet PO DAILY 01/19/22 09/27/22 nortriptyline 25 mg capsule 25 cap PO DAILY 01/19/22 09/27/22 pantoprazole 40 mg tablet,delayed 40 tablet PO DAILY 01/19/22 09/27/22 release trazodone 300 mg tablet 300 tablet PO BID 01/19/22 09/27/22 Allergies Allergy/AdvReac Type Severity Reaction Status Date / Time hydrocodone Allergy Severe Other Verified 03/08/23 20:57 morphine Allergy Severe Other Verified 03/08/23 20:57 Penicillins Allergy Unknown Itching Verified 03/08/23 20:57 Review of Systems Review of Systems: All systems reviewed & are unremarkable except as noted in HPI and below PMFSH Past Medical History Medical History Breast cancer Mitral valve prolapse Thyroid cancer Surgical History Surgical History H/O bilateral mastectomy H/O partial thyroidectomy Exam Const: General: healthy appearing, no acute distress and alert Nutritional Appearance: well nourished Orientation/consciousness: patient oriented x3 Limitations: no limitations HENMT: Head: normal to inspection Ears: external ears normal Face/Nose/Sinus: Normal external nose present Face and sinus: normal facial exam Mouth: Yes moist mucous membranes abnormal Eyes: Conjunctivae: conjunctivae normal Pupils: Equal, round and reactive pupils present EOM: EOMs intact bilaterally Neck: Neck: normal visual inspection Resp: Effort & Inspection: normal respiratory effort Auscultation: clear to auscultation bilaterally Cardio: Rate: regular rate Rhythm: regular rhythm GI: GI Palp: Yes Soft to palpation and No Tenderness to palpation present (GI) Auscultation: normal bowel sounds Back/Spine/Pelvis: Cervical Spine: cervical ROM normal Thoracic/Lumbar Spine: thoraco-lumbar ROM normal Skin: General skin exam: normal color Rashes: no rashes Neuro: General: patient oriented x3, moves all extremities, no focal motor deficits and CN's II-XI intact bilaterally Speech: normal speech Gait exam (Neuro): Normal gait present Extrem: General: normal to inspection and no clubbing, cyanosis or edema Psych: Mental Status: mental status grossly normal Affect: normal affect Attitude: cooperative MDM - Headache Differential Diagnosis Differential diagnosis: Likely migraine, tension headache and headache Discharge Plan Discharge Clinical Impression: Migraine Qualifiers: Migraine type: migraine (< 15 days per month) without aura Status migrainosus presence: without status migrainosus Intractability: not intractable Qualified Code(s): G43.009 - Migraine without aura, not intractable, without status migrainosus Patient Disposition: Home, Self-Care Condition: Stable Instructions: Migraine Headache (ED) Additional Instructions: home rest in a quiet dark room. Prescriptions: No Action gabapentin 600 mg Tablet 600 mg PO DAILY nortriptyline 25 mg capsule 25 cap PO DAILY levothyroxine 50 mcg tablet 1.5 tablet PO DAILY pantoprazole 40 mg tablet,delayed release (DR/EC) 40 tablet PO DAILY
[2023-07-09] MEDS: diphenhydrAMINE HCl INJ 50 MG/ML VIAL IV PUSH (18:26)
[2023-07-09] MEDS: METOCLOPRAMIDE HCL INJ 10 MG/2 ML VIAL IV PUSH (18:26)
[2023-07-09] MEDS: KETOROLAC 30 MG/ML VIAL (*BKC) IV PUSH (18:27)
--- NOTE | 2023-07-09 18:44 | PC.NURSE ---
pt resting in room, call jefferson in reach. awaiting ride.
[2023-07-09 18:54] VITALS: BP 134/72; PULSE 55; RESP 20; TEMP 37.1; O2SAT 98
== END 2023-07-09 19:01 | disposition home or self-care (01) ==
LOC: CHSED 18:50
PROVIDERS: Emergency Provider Emergency Medicine; PCP Internal Medicine
DX: G43.909 Migraine, unspecified, not intractable, without status migrainosus (principal); Z85.3 Personal history of malignant neoplasm of breast; Z85.850 Personal history of malignant neoplasm of thyroid
CPT/HCPCS: 96374; 96375; 99284; J1200; J1885; J2765

== ENCOUNTER 2024-10-28 11:04 | Emergency (ER) | payer MEDICARE, OTHER, SELFPAY ==
[2024-10-28] VITALS (17 sets, daily range): BP systolic 119–158; BP diastolic 66–89; PULSE 62–94; RESP 14–18; TEMP 36.8–37.1; O2SAT 94–100
--- NOTE | ~2024-10-28 | CT_ITS ---
EXAMINATION: CT abdomen pelvis w con DATE: 10/28/2024 12:09 INDICATION: Abdominal pain. Nausea. Abdominal distention. TECHNIQUE: Computed tomography (CT) of the abdomen and pelvis was performed with 100 mL Omnipaque 350 intravenous contrast. Automated exposure control and iterative reconstruction technique were employe d. The dose-length product was 213.65 mGy-cm. COMPARISON: CT abdomen and pelvis 08/10/2014 FINDINGS: The visualized portions of the lung bases demonstrate mild atelectasis. No pleural effusion . The heart size is normal. No pericardial effusion. There are cysts in the liver measuring up to 15 mm. There are changes of cholecystectomy. Calcifications in the spleen are consistent with old granul omatous disease. The pancreas, adrenal glands, and kidneys are normal. There are no dilated loops of bowel. The appendix is not visualized. There are no pathologically enlarged lymph nodes. There is no free intraperitoneal fluid. There are changes of posterior fusion procedure at L5-S1. There is severe lumbar spondylosis. IMPRESSION: 1. No etiology for the patient's symptoms. Reviewed, dictated and finalized at location A. NE GUIDE
--- OUTSIDE RECORDS SUMMARY | 2024-10-28 11:08 | XMS_ITS | Clinical Summary ---
Author Organization [facility] Address [address] [place] [address] Care Team Providers Care Post Doctoral Researcher Name Role Phone Unavailable Primary Care Provider Unavailabl e Social History Tobacco Use Types Packs/Day Years Used Date Smoking Tobacco: Never Assessed Comments Unknown Sex and Gender Information Value Date Recorded Sex Assigned at Not on file Legal Sex Female 7:12 PM CDT Gender Identity Not on file Sexual Orientation Not on file Last Filed Vital Signs Vital Sign Reading Time Taken Comments Blood Pressure 118/64 07/01/2015 3:37 PM CIGAR MAKING MACHINE SUPERVISOR Pulse 79 07/01/2015 3:37 PM CIGAR MAKING MACHINE SUPERVISOR Temperature - - Respiratory Rate - - Oxygen Saturation - - Inhaled Oxygen Concentration - - Weight 63.1 kg (139 lb) 07/01/2015 3:37 PM CIGAR MAKING MACHINE SUPERVISOR Height 165.1 cm (5' 5 ) 07/01/2015 3:37 PM CIGAR MAKING MACHINE SUPERVISOR Body Mass Index 23.13 07/01/2015 3:37 PM CIGAR MAKING MACHINE SUPERVISOR Plan of Treatment Health Maintenance Due Date Last Done Comments Colorectal Cancer Screening Colonoscopy (10 Years) 1957 DTaP, Tdap and Td Vaccines ( 1 - Tdap) 1976 Mammogram Screening 1997 Zoster Vaccines (1 of 2) 2007 Dexa Scan (General) 2022 Pneumococcal Vaccine: 65+ Ye ars (1 of 1 - PCV) 2022 COVID-19 Vaccine ( - 2023-2 5 season) 2024 Influenza Adult (#1) 2024 06/12/2013 RSV Immunization or 60+ Years (1 - 1-dose 75+ series) 2032 Hepatitis C Completed 08/13/2014 Meningococcal B Vaccine Aged Out No l onger eligible based on patient's age to complete this topic Meningococcal Vaccine Aged Out No kary angelica eligible based on patient's age to complete this topic RSV Immunizations Under 20 Months Aged Out No longer eligible based on patient's age to complete this topic Procedures Procedure Name Priority Date/Time Associated Diagnosis Comments HEPATITIS A,B,& C Routine 08/13/2014 5:2 0 PM CIGAR MAKING MACHINE SUPERVISOR from Last 3 Months or Most Recently Relevant to Health Maintenance Results * HEPATITIS A,B,& C (08/13/2014 5:20 PM CIGAR MAKING MACHINE SUPERVISOR) HAV IGM NON-REACTI VE NR [facility] TO EPIC CONVERSION HEPATITIS B SURFACE AG NON-REACTI VE NR [facility] TO EPIC CONVERSION HEP B SURFACE AB NON-REACTI VE [facility] TO EPIC CONVERSION HEP B CORE TOTAL AB NON-REACTI VE NR [facility] TO EPIC CONVERSION HEPATITIS C AB NON-REACTI VE NR [facility] TO EPIC CONVERSION Comment: Result Comment: TESTING PERFORMED AT [facility], A MEMBER OF THE [facility]. 08/13/2014 5:20 PM CIGAR MAKING MACHINE SUPERVISOR 08/13/2014 5:20 PM CIGAR MAKING MACHINE SUPERVISOR Narrative [facility] TO EPIC CONVERSION - 08/14/2014 7:22 PM CIGAR MAKING MACHINE SUPERVISOR Result Communication: Call patient with results us Yandy Jean Baptiste MD LABORATORY Final Result [facility] TO EPIC CONVERSION from Last 3 Months or Most Recently Relevant to Health Maintenance
--- OUTSIDE RECORDS SUMMARY | 2024-10-28 11:08 | XMS_ITS | Referral Summary ---
Author Organization [facility] Address [address] [place] [address] Care Team Providers Care Gas Turbine Mechanic Name Role Phone Sandra Segura APRN-OIL DISPENSER Primary Care Provide r Source Comments [facility],non-owned Affiliates and Associated Physician Practices is amultiple site organization consisting of ambulatory clinics and hospital sitesin [place], [place], [place] and [place]. This disclosure is being madepursuant to the Care Everywhere program and may not contain all information available regarding this patient. Last updated 18.[facility] Allergies Active Allergy Reactions Criticality Noted Date Comments Erythromycin Diarrhea 10/01/2017 Penicillins Itching 10/01/2017 Medications * Be aware that medications may not be up to date on this document. Alwaysverify current medications with the patient. Medication Sig Dispensed Refills Start Date End Date Status traZODone (DESYREL) 100 MG tablet Take 100 mg by mouth at bedtime Active GABAPENTIN PO Active Multiple Vitamins-Minerals (PRESERVISION AREDS PO) Active nortriptyline (PAMELOR) 10 MG capsule Take 10 mg by mouth at bedtime Active escitalopram (LEXAPRO) 20 MG tablet Take 20 mg by mouth once daily Active IRON PO Active Misc Natural Products (OSTEO BI-FLEX JOINT SHIELD PO) Active Vitamin Mixture (DERIC-C PO) Active Multiple Vitamins-Minerals (CENTRUM PO) Active Social History Tobacco Use Types Packs/Day Years Used Date Smoking Tobacco: Every Day Smokeless Tobacco: Never Sex and Gender Information Value Date Recorded Sex Assigned at Not on file Gender Identity Not on file Sexual Orientation Not on file Last Filed Vital Signs Vital Sign Reading Time Taken Comments Blood Pressure 118/68 10/01/2017 3:09 PM ELECTRICIAN CHIEF Pulse 73 10/01/2017 3:09 PM ELECTRICIAN CHIEF Temperature 37.2 C (98.9 F) 10/01/2017 3:09 PM ELECTRICIAN CHIEF Respiratory Rate 16 10/01/2017 3:09 PM ELECTRICIAN CHIEF Oxygen Saturation 97% 10/01/2017 3:09 PM ELECTRICIAN CHIEF Inhaled Oxygen Concentration - - Weight 63.5 kg (140 lb) 10/01/2017 3:09 PM ELECTRICIAN CHIEF Height 165.1 cm (5' 5 ) 10/01/2017 3:09 PM ELECTRICIAN CHIEF Body Mass Index 23.3 10/01/2017 3:09 PM ELECTRICIAN CHIEF Plan of Treatment Not on file Care Teams Gas Turbine Mechanic Relationship Specialty Start Date End Date Sandra Segura, MOLD RUNNER-OIL DISPENSER PCP - General Nurse Practitioner 10/01/17
--- OUTSIDE RECORDS SUMMARY | 2024-10-28 11:08 | XMS_ITS | Continuity of Care Document ---
Author Organization [facility] Address [address] [place] [address] Phone Care Team Providers Care Golf Cart Attendant Name Role Phone Gabrielle Dougherty DPT Unavailable Unavailable Procedures Procedure Date PT RE-EVALUATION THERAPEUTIC EXERCISES NEUROMUSCULAR RE-ED FUNC ACTIVITY HOT/COLD PACK THERAPEUTIC EXERCISES NEUROMUSCULAR RE-ED FUNC ACTIVITY HOT/COLD PACK THERAPEUTIC EXERCISES NEUROMUSCULAR RE-ED FUNC ACTIVITY HOT/COLD PACK THERAPEUTIC EXERCISES NEUROMUSCULAR RE-ED HOT/COLD PACK THERAPEUTIC EXERCISES NEUROMUSCULAR RE-ED FUNC ACTIVITY HOT/COLD PACK THERAPEUTIC EXERCISES NEUROMUSCULAR RE-ED HOT/COLD PACK PT EVALUATION THERAPEUTIC EXERCISES Advance Directives Directive Yes / No Effective Date File Name No Information Encounters Encounter Description Practice Location Reason(s) For Visit Diagnoses Date Provider Providers Copied on Encounter [facility], [address], [place], [place], [id number], [place] tel:[phone] [place] No Information 6 Farhat Anthony. [address], [address], [place], [address], [place]. tel:[phone] [phone] [place], [place] [address] [address], [place], [place], [address], tel:[phone] [place] No Information 2 0-201 6 [place] Gabrielle. [address] [place] [address], [address], [place], [place], [place], . tel:[phone] [place], [place] [address] [address], [place], [place], [id number], tel:[phone] [place] No Information Jul- 6-201 6 [place] Gabrielle. [address] [place] [address], [address], [place], [place], [place], [place]. tel:[phone] [place], [place] [address] [address], [place], [place], [id number], tel:[phone] [place] No Information 3-201 6 Farhat Gabrielle. [address] [place] [address], [address], [place], [place], [place], . tel:[phone] [place] [address] [place], [place] [address] [address], [place], [id number], tel:[phone] [place] No Information 0 2-201 6 Farhat Gabrielle. [address] [place] [address], [address], [place], [place], [place], . tel:[phone] [place] [address] [place], [place] [address] [address], [place], [id number], [place] tel:[phone] [place] No Information 5-201 6 Niederhoffer Ines. . [facility], [place], [place], [address], [place] tel:[phone] [place] Low back painPain in left hipMuscle weakness (generalized )Pain in left legAbnormal postureSacro iliitis, not elsewhere classified 2 1-201 6 Farhat Gabrielle. [address] [place] [address], [address], [place], [place], [place], [place]. tel:[phone] Family History Family Member Type Diagnosis Age At Onset No Information Payers Payer name Insurance type Covered constitution party ID Authoriza tion(s) No Information Social History Type Description Quantity Date Captured Comments Sex Female Smoking Status No Information Chief Complaint And Reason For Visit No Information Reason For Referral Reason For Referral No Information History Of Present Illness Encounter Date Complaint History Of Prese nt Illness No Information Functional Status Date Functional Assessmen t No Information Instructions Date Instruction Additional Infor mation No Information Assessments Type Assessment Date No Information Patient Care Teams Name Effective Dates (start - stop) Status Members No Information
--- OUTSIDE RECORDS SUMMARY | 2024-10-28 11:08 | XMS_ITS | Clinical Summary ---
Author Organization [facility] Address [address] [place] [address] Phone Care Team Providers Care Glass Decorator Name Role Phone Raffy Jean Baptiste MD Primary Care Provider [phone] Allergies Active Allergy Reactions Criticality Noted Date Comments Morphine Nausea and Vomiting Low 10/12/2011 Penicillins Itching Low 10/12/2011 Medications TRAZODONE HCL (TRAZODONE ORAL) Take 150 mg by mouth daily at bedtime. Active VERAPAMIL HCL (VERAPAMIL ORAL) Take 180 mg by mouth daily. Active GABAPENTIN ORAL Take 600 mg by mouth daily. Active ESOMEPRAZOLE MAGNESIUM (NEXIUM ORAL) Take 20 mg by mouth daily. Active LACTOBACILLUS RHAMNOSUS GG (PROBIOTIC ORAL) Take 1 Tab by mouth daily. Active ASCORBATE CALCIUM (DERIC-C ORAL) Take 600 mg by mouth daily. Active MULTIVITAMIN W-MINERALS/LUTEI N (CENTRUM SILVER ORAL) Take 1 Tab by mouth daily. Active Iron, Carbonyl 65 mg Oral Tab Take 65 mg by mouth daily. Active escitalopram (LEXAPRO) 20 mg Oral tablet Take 20 mg by mouth daily. Active Redkey-3 Fatty Acids (FISH OIL) 300 mg Oral Cap Take by mouth. Active dicyclomine (BENTYL) 20 mg tablet Take 1 Tab by mouth every 6 hours as needed (abdominal cramping). 180 Tab 0 09/20/2013 Active Active Problems Problem Noted Date Diagnosed Date Irritable bowel syndrome 10/08/2013 GERD (gastroesophageal reflux disease) 4 Globus sensation 10/08/2013 Hepatitis C antibody test positive 06/07/2013 Overview (06/07/2013): RNA negative. Constipation 10/12/2011 Hematochezia 10/12/2011 Overview (06/07/2013): Colonoscopy 10/2011: Internal hemorrhoids. Abdominal pain, epigastric 10/12/2011 Overview (06/07/2013): EGD 10/2011: Grossly normal. GE junction biopsies neg for Lamb's. Nausea alone 10/12/2011 Family History Medical History Relation Name Comments Breast Cancer Daughter Lung Cancer Sister Relation Name Status Comments Daughter Sister Social History Tobacco Use Types Packs/Day Years Used Date Smoking Tobacco: Every Day Cigarettes 1 40 Alcohol Use Standard Drinks/Week Comments Yes 0 (1 standard drink = 0.6 oz pur e alcohol) rare Comments Unknown Sex and Gender Information Value Date Recorded Sex Assigned at Not on file Legal Sex Female 6:07 AM MILL CONTROLLER Gender Identity Not on file Sexual Orientation Not on file Occupation Industry Job Start Date Job End Date Not on file Not on file Not on file Not on file Last Filed Vital Signs Vital Sign Reading Time Taken Comments Blood Pressure 112/60 10/05/2013 2:55 PM MILL CONTROLLER Pulse 72 06/05/2013 2:19 PM CDT Temperature 36.1 C (97 F) 11/03/2011 10:12 AM CDT Respiratory Rate 17 11/03/2011 10:25 AM CDT Oxygen Saturation 98% 11/03/2011 10:25 AM CDT Inhaled Oxygen Concentration - - Weight 64 kg (141 lb) 10/05/2013 2:55 PM MILL CONTROLLER Height 165.1 cm (5' 5 ) 10/05/2013 2:55 PM MILL CONTROLLER Body Mass Index 23.46 10/05/2013 2:55 PM MILL CONTROLLER Plan of Treatment Health Maintenance Due Date Last Done Comments DTAP/TDAP/TD VACCINES (1 - Tdap) 1976 PNEUMOCOCCAL VACCINE 50+ YEA RS (1 of 2 - PCV) 1976 BREAST CANCER SCREENING 1997 FIT-DNA Q 3 years 2002 FIT/FOBT Q 1 year 2002 Flex Sig/CT Colonography Q 5 years 2002 ZOSTER VACCINE (1 of 2) 2007 COLORECTAL SCREENING 11/02/2016 11/03/2011, 11/03/19 Colorectal Cancer Screening 11/02/2016 OSTEOPOROSIS SCREENING 2022 INFLUENZA VACCINE (#1) 2024 RSV VACCINE (60+ or ) (1 - 1-dose 75+ series) 2032 Advance Directives For more information, please contact: [phone] * Full Code (Latest Code Status on File) Date Activated Date Inactivated Comments 11/03/2011 9:19 AM 11/04/2011 2:01 AM Care Teams Glass Decorator Relationship Specialty Start Date End Date Raffy Jean Baptiste MD PCP - General Internal Medicine 10/12/11
--- OUTSIDE RECORDS SUMMARY | 2024-10-28 11:08 | XMS_ITS | Clinical Summary ---
Author Organization [facility] Address [address] [place] [address] Care Team Providers Care Oil Fire Specialist Name Role Phone Sandra Segura APRN-CORONER Primary Care Provide r Source Comments [facility] [employer],non-owned Affiliates and Associated Physician Practices is amultiple site organization consisting of ambulatory clinics and hospital sitesin [place], [place], [place] and [place]. This disclosure is being madepursuant to the Care Everywhere program and may not contain all information available regarding this patient. Last updated 18.[facility] [employer] Allergies Active Allergy Reactions Criticality Noted Date [...] Comments Blood Pressure 118/68 10/01/2017 3:09 PM LINTER OPERATOR Pulse 73 10/01/2017 3:09 PM LINTER OPERATOR Temperature 37.2 C (98.9 F) 10/01/2017 3:09 PM LINTER OPERATOR Respiratory Rate 16 10/01/2017 3:09 PM LINTER OPERATOR Oxygen Saturation 97% 10/01/2017 3:09 PM LINTER OPERATOR Inhaled Oxygen Concentration - - Weight 63.5 kg (140 lb) 10/01/2017 3:09 PM LINTER OPERATOR Height 165.1 cm (5' 5 ) 10/01/2017 3:09 PM LINTER OPERATOR Body Mass Index 23.3 10/01/2017 3:09 PM LINTER OPERATOR Plan of Treatment Health Maintenance Due Date Last Done Comments BONE DENSITY TESTING 1957 COLOGUARD (AGES 45-75) - COL ON CA SCREENING 1957 COLON MONITORING 1957 COLONOSCOPY - COLON CA SCREENING 1957 CT COLONOGRAPHY - COLON CA SCREENING 1957 Colorectal Cancer Screening 1957 FIT - COLON CA SCREENING 1957 FLEX SIG - COLON CA SCREENING 1957 LIPID TESTING 1957 MAMMOGRAM 1957 HEPATITIS C SCREENING 03/02/1975 DTAP/TDAP/TD VACCINES (1 - Tdap) 1976 PNEUMOCOCCAL VACCINE 50+ (1 of 2 - PCV) 1976 ZOSTER VACCINE (1 of 2) 2007 COVID-19 VACCINE ( - 2023-2 5 season) 2024 INFLUENZA VACCINE (#1) 2024 6, 07/26/2015 DEPRESSION SCREENING 08/23/2024 Respiratory Syncytial Virus (RSV) Vaccine Pt: or over 60 yrs (1 - 1-dose 75+ series) 2032 HEPATITIS B VACCINE Aged Out No longe r eligible based on patient's age to complete this topic HIB VACCINE Aged Out No longer eligi ble based on patient's age to complete this topic HPV VACCINE Aged Out No longer eligi ble based on patient's age to complete this topic MENINGOCOCCAL (Group B) VACCINE Aged Out No longer eligible b ased on patient's age to complete this topic MENINGOCOCCAL VACCINE Aged Out No kary angelica eligible based on patient's age to complete this topic Care Teams Oil Fire Specialist Relationship Specialty Start Date End Date Sandra Segura, HIGH SCHOOL DIRECTOR-CORONER PCP - General Nurse Practitioner 10/01/17
--- OUTSIDE RECORDS SUMMARY | 2024-10-28 11:08 | XMS_ITS | Continuity of Care Document ---
Author Organization [facility] [address] [place] [address] Phone Care Team Providers Care Qa Developer Name Role Phone Vasquez Fowler MD Unavailable Unavailable Allergies, Adverse Reactions, Alerts Substance Reaction Status Criticality erythromycin base Active No Informa tion Sulfa (Sulfonamide Antibiotics) Active No Information Penicillins Active No Information Medications Medication Instructions Dosage Effective Dates (start - stop) Status Comments PROZAC (unknown strength) take 2 capsule by ORAL route every day Not Available - Active TRAZODONE HCL (unknown strength) Not Available - Active Nexium 20 mg Cap take 1 capsule (20MG) by ORAL route every day - Active Gabapentin 600 mg Tab take 1 tablet (600MG) by ORAL route 3 times every day 600 MG - Active Centrum Silver Tab take 1 tablet by ORAL route every day - Active POTASSIUM (unknown strength) Not Available - Active Verapamil ER 180 mg 24 hr Tab take 1 tablet (180MG) by ORAL route every day at bedtime - Active IRON (unknown strength) Not Available - Active DERIC-C (unknown strength) Not Available - Active CALCIO LEVI (unknown strength) Not Available - Active Flexeril 10 mg Tab take 1 tablet (10MG) by ORAL route 2 times every day - Active Procedures Procedure Date No Charge Glasses Check Contact Lens Fit, Med Superv, Level 1 Se Eye Exam & Treatment Eye Exam & Treatment Refraction Advance Directives Directive Yes / No Effective Date File Name Resuscitation Not Answered N/A N/A Life Support Not Answered N/A N/A Intubation Not Answered N/A N/A Antibiotics Not Answered N/A N/A IV Fluid Support Not Answered N/A N/A Tube Feed Not Answered N/A N/A Other Directive N/A N/A WARNING:The information contained in this section is historical and is provided for information only and does not constitute a legal document or any assurance that the information is still accurate. Please verify the information with the marie of the legal document before using it for clinical purposes. Encounters Encounter Description Practice Location Reason(s) For Visit Diagnoses Date Provider Providers Copied on Encounter [facility], [address] [place] [address] [address], [place], [place], [id number], tel:[phone] SEC [place] Professional a comprehensive exam (chief complaint) No Information 2 Janeth Ovalle. [address] [facility] [place], [id number], . tel:[phone] Referring Provider: Vasquez Sandoval, [address] [facility] [place], [address] . tel:[phone] [facility], [address] [place] [address] [address], [place], [place], [id number], tel:[phone] SEC [place] [address] [facility] blurry vision (chief complaint) HYPERMETROPI A 2 Erica Marie. [address] [facility] [facility] [address], [place], [place], [id number], . tel:[phone] Referring Provider: Vasquez Sandoval, [address] [place] [place], [address] . tel:[phone] [facility], [address] [place] [address] [address], [place], [place], [id number], tel:[phone] SEC [place] Professional a comprehensive exam (chief complaint) HORDEOLUM EXTERNUMMACU LAR SCARS NEC 2 Janeth Ovalle. [address] [facility], [place], [place], [id number], . tel:[phone] Referring Provider: Vasqueznathanael Sandoval, [address] [facility] [address], [place], [address] . tel:[phone] [facility], [address], [place], [place], [address], tel:[phone] SEC [place] Professional No Information 2 Regan Pastrana. [address], [address], [place], [place], [id number], . tel:[phone] [facility], [address], [place], [place], [address], tel:[phone] SEC Tiro [place] Professional No Information 9 Janeth Ovalle. [address] [facility], [address] [place], [address], . tel:[phone] Family History Family Member Type Diagnosis Age At Onset Brother Problem (finding) diabetes melli tus in first degree relative Mother Problem (finding) diabetes melli tus in first degree relative Payers Payer name Insurance type Covered libertarian ID Authoriza tion(s) No Information Social History Type Description Quantity Date Captured Comments Alcohol Use Details Caffeine Use Details No Tobacco Use Status Smoking Status No Information Sex Female Chief Complaint And Reason For Visit From encounter dated '07/11/2012 11:15'. a comprehensive exam (chief complaint) Reason For Referral Reason For Referral No Information History Of Present Illness Encounter Date Complaint History Of Prese nt Illness No Information Functional Status Date Functional Assessmen t No Information Instructions Date Instruction Additional Infor mation glasses problem. 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 No changes. Will monitor. Related to MACULAR SCARS NEC Meibomitis, OU - est ablished, stable - vision not affected - will continue to monitor - Recommends warm compress and massage. Discussed fish oil also. Will monitor. Related to Hordeolum Iris Cyst OD- - Stab le. No treatment. Will monitor. Assessments Type Assessment Date No Information Patient Care Teams Name Effective Dates (start - stop) Status Members No Information
--- OUTSIDE RECORDS SUMMARY | 2024-10-28 11:08 | XMS_ITS | Patient Health Summary ---
Author Organization [facility] Address [address] [place] [address] Care Team Providers Care Catalog Librarian Name Role Phone Sandra Segura APRN-CREATIVE WRITING TEACHER Primary Care Provide r Note from [facility],non-owned Affiliates and Associated Physician Practices is amultiple site organization consisting of ambulatory clinics and hospital sitesin [place], [place], [place] and [place]. This disclosure is being madepursuant to the Care Everywhere program and may not contain all information available regarding this patient. Last updated 18.[facility] Allergies * Erythromycin(Diarrhea) * Penicillins(Itching) Medications * Be aware that medications may not be up to date on this document. Alwaysverify current medications with the patient. * traZODone (DESYREL) 100 MG tablet Take 100 mg by mouth at bedtime * GABAPENTIN PO * Multiple Vitamins-Minerals (PRESERVISION AREDS PO) * nortriptyline (PAMELOR) 10 MG capsule Take 10 mg by mouth at bedtime * escitalopram (LEXAPRO) 20 MG tablet Take 20 mg by mouth once daily * IRON PO * Misc Natural Products (OSTEO BI-FLEX JOINT SHIELD PO) * Vitamin Mixture (DERIC-C PO) * Multiple Vitamins-Minerals (CENTRUM PO) Social History Tobacco Use Types Packs/Day Years Used Date Smoking Tobacco: Every Day Smokeless Tobacco: Never Sex and Gender Information Value Date Recorded Sex Assigned at Not on file Gender Identity Not on file Sexual Orientation Not on file Last Filed Vital Signs Vital Sign Reading Time Taken Comments Blood Pressure 118/68 10/01/2017 3:09 PM DISABILITY SERVICES COORDINATOR Pulse 73 10/01/2017 3:09 PM DISABILITY SERVICES COORDINATOR Temperature 37.2 C (98.9 F) 10/01/2017 3:09 PM DISABILITY SERVICES COORDINATOR Respiratory Rate 16 10/01/2017 3:09 PM DISABILITY SERVICES COORDINATOR Oxygen Saturation 97% 10/01/2017 3:09 PM DISABILITY SERVICES COORDINATOR Inhaled Oxygen Concentration - - Weight 63.5 kg (140 lb) 10/01/2017 3:09 PM DISABILITY SERVICES COORDINATOR Height 165.1 cm (5' 5 ) 10/01/2017 3:09 PM DISABILITY SERVICES COORDINATOR Body Mass Index 23.3 10/01/2017 3:09 PM DISABILITY SERVICES COORDINATOR Procedures * INFLUENZA A+B - POINT OF CARE (AMB)(Performed 10/01/2017) Performed for Acute serous otitis media of left ear, recurrence not specified * HEPATIC FUNCTION PANEL(Performed 12/21/2012) * BASIC METABOLIC PANEL (CALCIUM TOTAL)(Performed 12/21/2012) * CBC W AUTO DIFFERENTIAL(Performed 12/21/2012) Results * INFLUENZA A+B - POINT OF CARE (AMB) (10/01/2017) [facility] Influenza A Antigen Rapid Negative Negative Influenza B Antigen Rapid Negative Negative Influenza Internal Control yes NEGATIVE - POSITIVE Influenza Lot Number [id number] Influenza Expiration Date 06/14/19 Other NASOPHARYNGEAL SWAB / Unknown 10/01/2017 Almaz Moody DOCUMENT CLERK[facility] - POINT OF [place] RE ORDERABLES * (ABNORMAL) CBC W AUTO DIFFERENTIAL (12/21/2012 9:07 AM CDT) [facility] WBC 6.6 3.5 - 10.5 10^3/uL [facility] RBC 4.13 3.90 - 5.00 10^6/uL [facility] Hemoglobin 13.6 12.0 - 15.5 g/dL [facility] Hematocrit 39.7 35.0 - 45.0 % [facility] MCV 96.1 81.0 - 97.0 FL [facility] MCH 32.9 28.0 - 34.0 PG [facility] MCHC 34.3 32.0 - 36.0 G/DL [facility] Platelet 254 150 - 400 10^3/uL [facility] RDW 12.5 11.2 - 14.8 % [facility] RDW-SD 44.1 36 - 50 FL [facility] MPV 8.9(L) 9.3 - 12.8 FL [facility] Neutrophils % 44.3 35.0 - 70.0 % [facility] Lymphocytes % 45.6 19.7 - 55.1 % [facility] Monocytes % 8.0 3 - 15 % [facility] Eosinophils % 1.5 0.0 - 6.0 % [facility] Basophils % 0.6 0.0 - 1.5 % [facility] Neutrophils Absolute 2.9 1.7 - 7.0 10^3/uL [facility] Lymphocyte Absolute 3.0(H) 0.8 - 2.9 10^3/uL [facility] Monocytes Absolute 0.5 0.14 - 0.66 10^3/uL [facility] Eosinophils Absolute 0.10 0.00 - 0.22 10^3/uL [facility] Basophils Absolute 0.04 0.02 - 0.06 10^3/uL [facility] Differential Type AUTO DIFFERENTIAL [facility] Venous blood specimen (specimen) 12/21/2012 9:07 AM CDT 12/21/2012 9:27 AM CDT Patricia Valente MD LAB - HEMATOLOGY ORD ERABLES [address] [phone] * (ABNORMAL) BASIC METABOLIC PANEL (CALCIUM TOTAL) (12/21/2012 9:07 AM CDT) BUN 21 7 - 26 mg/dL [facility] Creatinine 0.8 0.6 - 1.2 mg/dL [facility] eGFR by MDRD > 60 ML/MIN [facility] Comment: Chronic kidney disease: <60 ml/min Kidney failure: <15 ml/min Based on BSA of 1.73m2. Sodium 144 136 - 145 mmol/L [facility] Potassium 3.6 3.5 - 4.5 mmol/L [facility] Chloride 106 98 - 107 mmol/L [facility] CO2 28 22 - 29 mmol/L [facility] Glucose 87 70 - 115 mg/dL [facility] Calcium 9.5 8.4 - 10.2 mg/dL [facility] Anion Gap 14 8 - 18 [facility] BUN/Creatinine Ratio 26(H) 7 - 23 [facility] Osmolality Calculation 284 270 - 300 mOsm/kg [facility] Venous blood specimen (specimen) 12/21/2012 9:07 AM CDT 12/21/2012 9:27 AM CDT Patricia Valente MD LAB - CHEMISTRY GRECIA RODRIGUEZ Performing Organization Address City/[facility]/ZIP Co de Phone Number [address] [phone] * (ABNORMAL) HEPATIC FUNCTION PANEL (12/21/2012 9:07 AM CDT) Protein Total 5.9(L) 6.0 - 8.3 g/dL [facility] Albumin 3.6 3.4 - 5.0 g/dL [facility] Bilirubin Total 0.5 0.2 - 1.2 mg/dL [facility] Alkaline Phosphatase 49 40 - 150 Units/L [facility] ALT 11 0 - 55 Units/L [facility] AST 14 5 - 34 Units/L [facility] Albumin/Globulin Ratio 1.6 1.1 - 2.3 [facility] Bilirubin Direct 0.2 0.0 - 0.5 mg/dL [facility] Bilirubin Indirect 0.3 mg/dL [facility] Comment: Unconjugated bilirubin is a calculated value, reference ranges have not been established Venous blood specimen (specimen) 12/21/2012 9:07 AM CDT 12/21/2012 9:27 AM CDT Patricia Valente MD LAB - CHEMISTRY GRECIA RODRIGUEZ Performing Organization Address City/[facility]/ZIP Co de Phone Number [address] [phone] Care Teams Catalog Librarian Relationship Specialty Start Date End Date Sandra Segura, DOCUMENT CLERK-CREATIVE WRITING TEACHER PCP - General Nurse Practitioner 10/01/17
--- NOTE | 2024-10-28 11:19 | ECG_ITS ---
Test Date: 2024-10-28 11:35:32 Measurements Intervals [place] Rate: 62 P: 66 [place]: 135 QRS: 55 QRSD: 82 T: 63 QT: 427 QTc: 436 Interpretive Statements SINUS RHYTHM NORMAL ELECTROCARDIOGRAM No previous ECG available for comparison Electronically Signed On 10-28-2024 16:10:42 ACCESS REGISTRAR by Tahir Yan M.D.
[2024-10-28] MEDS: ONDANSETRON INJ 4 MG/2 ML VIAL IV PUSH (11:28)
[2024-10-28] MEDS: SODIUM CHLORIDE 0.9% IV 1,000 ML 999 ML IV CONT (11:28)
[2024-10-28 11:36] LABS: Basophils Absolute Auto 0.06 K/mm3 (0.00-0.10); Basophils Percent Auto 0.8 % (0.0-1.0); Eosinophils Absolute Auto 0.08 K/mm3 (0.02-0.50); Hematocrit 40.7 % (35.0-42.0); Hemoglobin 13.4 g/dL (11.7-13.8); Immature Granulocyte Absolute 0.04 K/mm3 (0.00-0.00); Immature Granulocyte Percent A 0.5 % (0.0-0.0); Lymphocytes Absolute Auto 2.32 K/mm3 (1.10-4.50); Mean Corpuscular HGB Conc 32.9 g/dL (32-36); Mean Corpuscular Hemoglobin 32.1 pg (27.0-31.0); Mean Corpuscular Volume 97.6 fL (78.0-102.0); Mean Platelet Volume 8.2 fl (9.2-11.8); Monocytes Absolute Auto 0.49 K/mm3 (0.10-0.90); Monocytes Percent Auto 6.3 % (2.0-11.0); Neutrophils Absolute Auto 4.75 K/mm3 (1.70-7.20); Neutrophils Percent Auto 61.4 % (50.0-70.0); Platelet Count Result 266 K/mm3 (150-420); Red Blood Count 4.17 M/mm3 (4.20-5.40); Red Cell Distribution Width 12.8 % (11.6-14.4); White Blood Count 7.7 K/mm3 (4.8-10.8)
[2024-10-28 11:45] LABS: Estimated CRCL calculation 49 ml/min; Estimated Glomerular Filt Rate > 60
[2024-10-28 11:49] LABS: INR 0.9; Partial Thromboplastin Time 25.6 Sec (23.9-30.70); Prothrombin Time 10.1 Seconds (9.50-12.1)
[2024-10-28 11:54] LABS: Lactic Acid Reflex 1.2 mmol/L (0.4-2.0)
[2024-10-28 11:55] LABS: Alanine Aminotransferase 9 U/L (14-59); Albumin Level 3.5 g/dL (3.4-5.0); Alkaline Phosphatase 89 U/L (46-116); Anion Gap 6 mmol/L (4-12); Aspartate Amino Transferase < 10 U/L (15-37); Bilirubin,Total 0.3 mg/dL (0.00-1.00); Blood Urea Nitrogen 19 mg/dL (7-18); Calcium 9.2 mg/dL (8.5-10.1); Carbon Dioxide 30 mmol/L (21-32); Chloride 106 mmol/L (98-108); Estimated CRCL calculation 49 ml/min; Estimated Glomerular Filt Rate > 60; Glucose 112 mg/dL (70-99); Lipase 49 U/L (16-77); Osmolality Calculated 297 mOsm/kg (285-295); Potassium 3.7 mmol/L (3.5-5.1); Sodium 142 mmol/L (136-145); Troponin I 6.9 ng/L (0.00-60.4)
[2024-10-28 12:17] LABS: Influenza A QL RT-PCR Negative (Negative); Influenza B QL RT-PCR Negative (Negative); RSV RNA, RT-PCR Negative (Negative); SARS-CoV-2 RNA PCR Negative (Negative)
[2024-10-28 12:29] LABS: Add Urine Microscopic? NO; Appearance Urine Clear (Clear); Bilirubin Urine Negative (Negative); Blood Urine Negative (Negative); Color Urine Light Yellow (Yellow); Glucose Urine UA Negative (Negative); Ketones Urine Negative (Negative); Leukocyte Esterase Ur Negative LEU/UL (Negative); Nitrate Urine Negative (Negative); Protein Urine Negative (Negative); Urobilinogen Urine 0.2 mg/dL (0.2-1.0)
--- NOTE | 2024-10-28 12:41 | ED_ITS ---
HPI - Abdominal Pain General Chief Complaint: Abdominal Pain Stated Complaint: abdominal pain since wednesday Source: patient and family Mode of arrival: ambulatory Limitations: no limitations History of Present Illness HPI narrative: this is a 69-year-old female with history of hypothyroidism, depression presents with some abdominal pain crampy currently has resolved with some nausea with no diarrhea or constipation no fever chills. MD elicited complaint: abdominal pain Pertinent past history: none Onset (ago): day(s) Pain Consistency: now resolved Location: diffuse Severity: mild Quality: aching Related Data Home Medications ?Medication ?Instructions ?Recorded ?Confirmed ?Last Taken ?Type escitalopram oxalate 20 mg tablet 20 tablet PO DAILY 01/19/22 09/27/22 Unknown History gabapentin 600 mg tablet 600 mg PO DAILY 01/19/22 09/27/22 Unknown History levothyroxine 50 mcg tablet 1.5 tablet PO DAILY 01/19/22 09/27/22 Unknown History nortriptyline 25 mg capsule 25 cap PO DAILY 01/19/22 09/27/22 Unknown History pantoprazole 40 mg tablet,delayed 40 tablet PO DAILY 01/19/22 09/27/22 Unknown History release trazodone 300 mg tablet 300 tablet PO BID 01/19/22 09/27/22 Unknown History Allergies Allergy/AdvReac Type Severity Reaction Status Date / Time hydrocodone Allergy Severe Other Verified 10/28/24 11:17 morphine Allergy Severe Other Verified 10/28/24 11:17 Penicillins Allergy Unknown Itching Verified 10/28/24 11:17 Review of Systems 2 Review of Systems: All systems reviewed & are unremarkable except as noted in HPI and below PMFSH Past Medical History Medical History Mitral valve prolapse Thyroid cancer Breast cancer Surgical History Surgical History H/O partial thyroidectomy H/O bilateral mastectomy Exam 2 Const: General: healthy appearing, no acute distress and alert Nutritional Appearance: well nourished Orientation/consciousness: patient oriented x3 Limitations: no limitations Neck: Neck: normal visual inspection, no lymphadenopathy and no meningeal signs Chest: Chest palpation & inspection: normal inspection of the chest Resp: Effort & Inspection: normal respiratory effort Auscultation: clear to auscultation bilaterally Cardio: Rate: regular rate Rhythm: regular rhythm GI: GI Palp: Yes Soft to palpation and Yes Tenderness to palpation present (GI) Auscultation: normal bowel sounds Skin: General skin exam: normal color Rashes: no rashes Wounds: no wounds Neuro: General: patient oriented x3, moves all extremities, no meningeal signs and no focal motor deficits Course Course Emergency Course: EKG shows normal sinus rhythm troponins are negative white count within normal range the rest of her blood work were unremarkable, CT scan performed shows no acute abnormalities UA is negative patient did receive IV fluids and IV Zofran which improved her nausea otherwise currently not exhibiting any abdominal discomfort. Vital Signs Vital signs: Vital Signs Temperature 37.1 C 10/28/24 11:05 Pulse Rate 74 10/28/24 11:05 Respiratory Rate 18 10/28/24 11:05 Blood Pressure 158/89 H 10/28/24 11:05 Pulse Oximetry 98 10/28/24 11:05 Oxygen Delivery Room Air 10/28/24 11:05 Temperature 37.1 C 10/28/24 11:05 Pulse Rate 94 10/28/24 12:16 Respiratory Rate 16 10/28/24 12:16 Blood Pressure 146/66 H 10/28/24 12:15 Pulse Oximetry 98 10/28/24 12:16 Oxygen Delivery Room Air 10/28/24 11:05 MDM - Abdominal Pain Lab Data 10/28/24 11:32 10/28/24 11:39 Labs: Lab Results 10/28/24 10/28/24 10/28/24 Range/Units 11:24 11:32 11:39 WBC 7.7 (4.8-10.8) K/mm3 RBC 4.17 L (4.20-5.40) M/mm3 Hgb 13.4 (11.7-13.8) g/dL Hct 40.7 (35.0-42.0) % MCV 97.6 (78.0-102.0) fL MCH 32.1 H (27.0-31.0) pg MCHC 32.9 (32-36) g/dL RDW 12.8 (11.6-14.4) % Plt Count 266 (150-420) K/mm3 MPV 8.2 L (9.2-11.8) fl Immature Gran % (Auto) 0.5 H (0.0-0.0) % Neut % (Auto) 61.4 (50.0-70.0) % Lymph % (Auto) 30.0 (18.0-42.0) % [place] % (Auto) 6.3 (2.0-11.0) % Eos % (Auto) 1.0 (1.0-6.0) % Baso % (Auto) 0.8 (0.0-1.0) % Lymph # (Auto) 2.32 (1.10-4.50) K/mm3 [place] # (Auto) 0.49 (0.10-0.90) K/mm3 Eos # (Auto) 0.08 (0.02-0.50) K/mm3 Baso # (Auto) 0.06 (0.00-0.10) K/mm3 Abs Immat Gran (auto) 0.04 H (0.00-0.00) K/mm3 Absolute Neuts (auto) 4.75 (1.70-7.20) K/mm3 Absolute Nucleated RBC 0.00 (0.00-0.00) K/mm3 Nucleated RBC % 0.0 (0-0.0) % PT 10.1 (9.50-12.1) Seconds INR 0.9 APTT 25.6 (23.9-30.70) Sec Sodium 142 (136-145) mmol/L Potassium 3.7 (3.5-5.1) mmol/L Chloride 106 (98-108) mmol/L Carbon Dioxide 30 (21-32) mmol/L Anion Gap 6 (4-12) mmol/L BUN 19 H (7-18) mg/dL Creatinine 0.83 0.83 (0.55-1.02) mg/dL Estim Creat Clear Calc 49 49 ml/min Estimated GFR > 60 > 60 (59 - ) Glucose 112 H (70-99) mg/dL Calculated Osmolality 297 H (285-295) mOsm/kg Lactic Acid 1.2 (0.4-2.0) mmol/L Calcium 9.2 (8.5-10.1) mg/dL Total Bilirubin 0.3 (0.00-1.00) mg/dL AST < 10 L (15-37) U/L ALT 9 L (14-59) U/L Alkaline Phosphatase 89 (46-116) U/L Troponin I 6.9 (0.00-60.4) ng/L Total Protein 6.0 L (6.4-8.2) g/dL Albumin 3.5 (3.4-5.0) g/dL Lipase 49 (16-77) U/L Urine Color (Yellow) Urine Appearance (Clear) Urine pH (5.0-8.0) Ur Specific [place] (1.010-1.020) Urine Protein (Negative) Urine Glucose (UA) (Negative) Urine Ketones (Negative) Ur Blood (Man) (Negative) Urine Nitrate (Negative) Urine Bilirubin (Negative) Urine Urobilinogen (0.2-1.0) mg/dL Leukocyte Esterase Rfl (Negative) PRABHAKAR/UL Influenza A (RT-PCR) Negative (Negative) Influenza B (RT-PCR) Negative (Negative) RSV (RT-PCR) Negative (Negative) SARS-CoV-2 RNA (RT-PCR) Negative (Negative) 10/28/24 Range/Units 12:14 WBC (4.8-10.8) K/mm3 RBC (4.20-5.40) M/mm3 Hgb (11.7-13.8) g/dL Hct (35.0-42.0) % MCV (78.0-102.0) fL MCH (27.0-31.0) pg MCHC (32-36) g/dL RDW (11.6-14.4) % Plt Count (150-420) K/mm3 MPV (9.2-11.8) fl Immature Gran % (Auto) (0.0-0.0) % Neut % (Auto) (50.0-70.0) % Lymph % (Auto) (18.0-42.0) % [place] % (Auto) (2.0-11.0) % Eos % (Auto) (1.0-6.0) % Baso % (Auto) (0.0-1.0) % Lymph # (Auto) (1.10-4.50) K/mm3 [place] # (Auto) (0.10-0.90) K/mm3 Eos # (Auto) (0.02-0.50) K/mm3 Baso # (Auto) (0.00-0.10) K/mm3 Abs Immat Gran (auto) (0.00-0.00) K/mm3 Absolute Neuts (auto) (1.70-7.20) K/mm3 Absolute Nucleated RBC (0.00-0.00) K/mm3 Nucleated RBC % (0-0.0) % PT (9.50-12.1) Seconds INR APTT (23.9-30.70) Sec Sodium (136-145) mmol/L Potassium (3.5-5.1) mmol/L Chloride (98-108) mmol/L Carbon Dioxide (21-32) mmol/L Anion Gap (4-12) mmol/L BUN (7-18) mg/dL Creatinine (0.55-1.02) mg/dL Estim Creat Clear Calc ml/min Estimated GFR (59 - ) Glucose (70-99) mg/dL Calculated Osmolality (285-295) mOsm/kg Lactic Acid (0.4-2.0) mmol/L Calcium (8.5-10.1) mg/dL Total Bilirubin (0.00-1.00) mg/dL AST (15-37) U/L ALT (14-59) U/L Alkaline Phosphatase (46-116) U/L Troponin I (0.00-60.4) ng/L Total Protein (6.4-8.2) g/dL Albumin (3.4-5.0) g/dL Lipase (16-77) U/L Urine Color Light yellow (Yellow) Urine Appearance Clear (Clear) Urine pH 7.0 (5.0-8.0) Ur Specific [place] 1.010 (1.010-1.020) Urine Protein Negative (Negative) Urine Glucose (UA) Negative (Negative) Urine Ketones Negative (Negative) Ur Blood (Man) Negative (Negative) Urine Nitrate Negative (Negative) Urine Bilirubin Negative (Negative) Urine Urobilinogen 0.2 (0.2-1.0) mg/dL Leukocyte Esterase Rfl Negative (Negative) PRABHAKAR/UL Influenza A (RT-PCR) (Negative) Influenza B (RT-PCR) (Negative) RSV (RT-PCR) (Negative) SARS-CoV-2 RNA (RT-PCR) (Negative) Imaging Data Radiologist's impression: ITS Impressions Abdomen/Pelvis CT 10/28/24 12:16 IMPRESSION: 1. No etiology for the patient's symptoms. Critical Care Time Critical Care Time Critical Care Time: No Discharge Plan Discharge Clinical Impression: Gastroenteritis Patient Disposition: Home, Self-Care Condition: Stable Instructions: Antibiotic Form, Clear Liquid Diet (ED), Gastroenteritis (ED) Additional Instructions: advised take medication as prescribed start a clear liquid diet and follow with primary within the next 3 to 4 days for further evaluation and treatment. Patient Language: Citizen [place] Prescriptions: New ondansetron 4 mg tablet,disintegrating 4 mg PO Q6H PRN (Reason: nausea and vomiting) Qty: 14 0RF No Action gabapentin 600 mg Tablet 600 mg PO DAILY nortriptyline 25 mg capsule 25 cap PO DAILY levothyroxine 50 mcg tablet 1.5 tablet PO DAILY pantoprazole 40 mg tablet,delayed release (DR/EC) 40 tablet PO DAILY trazodone 300 mg tablet 300 tablet PO BID escitalopram oxalate 20 mg tablet 20 tablet PO DAILY Follow-up/Referrals: Mary Jo,Robe Ring MD [Primary Care Provider] - Time of Disposition: 12:44
--- NOTE | 2024-10-30 12:32 | PC.NURSE ---
Preliminary blood culture report; no growth to date.
== END 2024-10-28 12:56 | disposition home or self-care (01) ==
PROVIDERS: Emergency Provider Emergency Medicine; PCP Internal Medicine
DX: K52.9 Noninfective gastroenteritis and colitis, unspecified (principal); E03.9 Hypothyroidism, unspecified; F32.A Depression, unspecified; Z85.3 Personal history of malignant neoplasm of breast; Z85.850 Personal history of malignant neoplasm of thyroid; Z20.822 Contact with and (suspected) exposure to COVID-19
CPT/HCPCS: 36415; 74177; 80053; 81003; 83605; 83690; 84484; 85025; 85610; 85730; 87040; 87637; 93005; 96361; 96374; 99284; J2405; J7030; Q9967

== ENCOUNTER 2025-05-31 06:36 | Emergency (ER) | payer MEDICARE, OTHER, SELFPAY ==
[2025-05-31] VITALS (80 sets, daily range): BP systolic 100–153; BP diastolic 53–97; PULSE 28–75; RESP 6–23; TEMP 36.3–36.9; O2SAT 93–99
--- NOTE | ~2025-05-31 | CT_ITS ---
EXAMINATION: CT abdomen pelvis wo con DATE: 05/31/2025 07:29 INDICATION: Epigastric pain TECHNIQUE: Computed tomography (CT) of the abdomen and pelvis was performed without intravenous contrast. Automated exposure control and iterative reconstruction technique were employed. The dose-length product was 184.51 mGy-cm. COMPARISON: 10/28/2024 FINDINGS: Lung bases are clear. Heart size is normal. Small pericardial effusion. No pleural effusion. Cholecystectomy clips the gallbladder fossa. Liver, spleen, pancreas, bilateral adrenal glands and kidneys are normal. No bowel obstruction. Bladder is normal. The uterus is not identified and has likely been surgically resected. No free intraperitoneal gas or fluid. No pathologically enlarged abdominal or pelvic lymphadenopathy. Moderate to severe lumbar spondylosis. L5 laminectomy and L5-S1 anterior and posterior spinal fusion with bilateral vertical marcin and pedicle screw fixation. IMPRESSION: 1. Small pericardial effusion. No acute intra-abdominal/pelvic process. Reviewed, dictated and finalized at location A.
--- NOTE | 2025-05-31 06:46 | ED.ABDPAIN ---
HPI - Abdominal Pain General Chief Complaint: Abdominal Pain <Luciano Barakat MD - Last Filed: 06/01/25 12:35> Stated Complaint: ABDOMINAL PAIN <Luciano Barakat MD - Last Filed: 06/01/25 12:35> Time Seen by Provider: 05/31/25 06:46 <Luciano Barakat MD - Last Filed: 06/01/25 12:35> Source: patient <Luciano Braakat MD - Last Filed: 06/01/25 12:35> Mode of arrival: ambulatory <Luciano Barakat MD - Last Filed: 06/01/25 12:35> Limitations: no limitations <Luciano Barakat MD - Last Filed: 06/01/25 12:35> History of Present Illness HPI narrative: Patient is a 70-year-old female with epigastric pain for the past day. This started yesterday. She is on Protonix. She has associated nausea without vomiting. Diarrhea. She has no gallbladder or appendix or female anatomy. <Luciano Barakat MD - Last Filed: 06/01/25 12:35> MD elicited complaint: abdominal pain <Luciano Barakat MD - Last Filed: 06/01/25 12:35> Pertinent past history: other (GERD) <Luciano Barakat MD - Last Filed: 06/01/25 12:35> Onset (ago): day(s) (2) <Luciano Barakat MD - Last Filed: 06/01/25 12:35> Pain Consistency: constant <Luciano Barakat MD - Last Filed: 06/01/25 12:35> Location: epigastric <Luciano Barakat MD - Last Filed: 06/01/25 12:35> Severity: moderate <Luciano Barakat MD - Last Filed: 06/01/25 12:35> Pain scale (0-10): 5 <MD Madalyn Parson Last Filed: 06/01/25 12:35> Quality: cramping <Luciano Barakat MD - Last Filed: 06/01/25 12:35> Radiation: epigastric <Luciano Barakat MD - Last Filed: 06/01/25 12:35> Migration to: other (Chest) <Luciano Barakat MD - Last Filed: 06/01/25 12:35> Exacerbating factors: nothing <Luciano Barakat MD - Last Filed: 06/01/25 12:35> Relieving factors: nothing <Luciano Barakat MD - Last Filed: 06/01/25 12:35> Context: confirms other (Patient having epigastric pain that radiates to the chest for the past day) <Luciano Barakat MD - Last Filed: 06/01/25 12:35> Associated symptoms: nausea <Luciano Barakat MD - Last Filed: 06/01/25 12:35> Treatments prior to arrival: antacids <Luciano Barakat MD - Last Filed: 06/01/25 12:35> Related Data Home Medications: Home Medications ?Medication ?Instructions ?Recorded ?Confirmed ?Last Taken ?Type escitalopram oxalate 20 mg tablet 20 tablet PO DAILY 01/19/22 09/27/22 Unknown History gabapentin 600 mg tablet 600 mg PO DAILY 01/19/22 09/27/22 Unknown History levothyroxine 50 mcg tablet 1.5 tablet PO DAILY 01/19/22 09/27/22 Unknown History nortriptyline 25 mg capsule 25 cap PO DAILY 01/19/22 09/27/22 Unknown History pantoprazole 40 mg tablet,delayed 40 tablet PO DAILY 01/19/22 09/27/22 Unknown History release trazodone 300 mg tablet 300 tablet PO BID 01/19/22 09/27/22 Unknown History <Luciano Barakat MD - Last Filed: 06/01/25 12:35> Allergies/Adverse Reactions: Allergies Allergy/AdvReac Type Severity Reaction Status Date / Time hydrocodone Allergy Severe Other Verified 05/31/25 07:05 morphine Allergy Severe Other Verified 05/31/25 07:05 Penicillins Allergy Unknown Itching Verified 05/31/25 07:05 <Luciano Barakat MD - Last Filed: 06/01/25 12:35> Review of Systems Review of Systems: All systems reviewed & are unremarkable except as noted in HPI and below <Luciano Barakat MD - Last Filed: 06/01/25 12:35> Constitutional: Constitutional: Reports no additional constitutional complaints <Luciano Barakat MD - Last Filed: 06/01/25 12:35> Eyes: Eyes: Reports no additional eye complaints <Luciano Barakat MD - Last Filed: 06/01/25 12:35> ENT: Reports system reviewed and no additional complaints, except as documented <Luciano Barakat MD - Last Filed: 06/01/25 12:35> Cardiovascular: Cardiovascular: Reports no additional cardiovascular complaints <Luciano Barakat MD - Last Filed: 06/01/25 12:35> Respiratory: Respiratory: Reports no additional respiratory complaints <Luciano Barakat MD - Last Filed: 06/01/25 12:35> Gastrointestinal: Gastrointestinal: Reports no additional gastrointestinal complaints <Luciano Barakat MD - Last Filed: 06/01/25 12:35> Genitourinary: Genitourinary: Reports no additional female genitourinary complaints <Luciano Barakat MD - Last Filed: 06/01/25 12:35> Musculoskeletal: Musculoskeletal: Reports no additional musculoskeletal complaints <Luciano Barakat MD - Last Filed: 06/01/25 12:35> Integumentary/Breasts: Skin/Breast: Reports system reviewed and no additional complaints, except as docu <Luciano Barakat MD - Last Filed: 06/01/25 12:35> Neurologic: Reports system reviewed and no additional complaints, except as documented <Luciano Barakat MD - Last Filed: 06/01/25 12:35> Psychiatric: Psychiatric: Reports no additional psychiatric complaints <Luciano Barakat MD - Last Filed: 06/01/25 12:35> Endocrine: Endocrine: Reports no additional endocrine complaints <Luciano Barakat MD - Last Filed: 06/01/25 12:35> Hematologic/Lymphatic: Hematologic/Lymphatic: Reports no additional hematologic/lymphatic complaints <Luciano Barakat MD - Last Filed: 06/01/25 12:35> Allergic/Immunologic: Allergic/Immunologic: Reports no additional allergic/immunologic complaints <Luciano Barakat MD - Last Filed: 06/01/25 12:35> PMFSH Past Medical History Medical History: Medical History Mitral valve prolapse Thyroid cancer Breast cancer <Luciano Barakat MD - Last Filed: 06/01/25 12:35> Surgical History Surgical History: Surgical History H/O partial thyroidectomy H/O bilateral mastectomy <Luciano Barakat MD - Last Filed: 06/01/25 12:35> Exam Const: General: ill appearing <Luciano Barakat MD - Last Filed: 06/01/25 12:35> Nutritional Appearance: well nourished <Luciano Barakat MD - Last Filed: 06/01/25 12:35> Orientation/consciousness: patient oriented x3 <Luciano Barakat MD - Last Filed: 06/01/25 12:35> Limitations: no limitations <Luciano Barakat MD - Last Filed: 06/01/25 12:35> HENMT: Head: normal to inspection <Luciano Barakat MD - Last Filed: 06/01/25 12:35> Ears: external ears normal <Luciano Barakat MD - Last Filed: 06/01/25 12:35> Face/Nose/Sinus: Normal external nose present <Luciano Barakat MD - Last Filed: 06/01/25 12:35> Eyes: Conjunctivae: conjunctivae normal <Luciaon Barakat MD - Last Filed: 06/01/25 12:35> Pupils: Equal, round and reactive pupils present <Luciano Barakat MD - Last Filed: 06/01/25 12:35> EOM: EOMs intact bilaterally <Luciano Barakat MD - Last Filed: 06/01/25 12:35> Neck: Neck: normal visual inspection <Luciano Barakat MD - Last Filed: 06/01/25 12:35> Chest: Chest palpation & inspection: normal inspection of the chest <Luciano Barakat MD - Last Filed: 06/01/25 12:35> Resp: Effort & Inspection: normal respiratory effort and not labored <MD Madalyn Parson Last Filed: 06/01/25 12:35> Auscultation: clear to auscultation bilaterally and no crackles <Luciano Barakat MD - Last Filed: 06/01/25 12:35> Cardio: Rate: regular rate <MD Madalyn Parson Last Filed: 06/01/25 12:35> Rhythm: regular rhythm <MD Madalyn Parson Last Filed: 06/01/25 12:35> Heart sounds: no murmurs <MD Madalyn Parson Last Filed: 06/01/25 12:35> GI: Inspection: non-distended <MD Madalyn Parson Last Filed: 06/01/25 12:35> GI Palp: Yes Soft to palpation, Yes Tenderness to palpation present (GI) (Epigastric), No Guarding due to palpation present (GI), No Rigid due to palpation, No Hernia present, No Palpable mass present and No Rebound tenderness present <MD Madalyn Parson Last Filed: 06/01/25 12:35> Auscultation: normal bowel sounds <MD Madalyn Parson Last Filed: 06/01/25 12:35> : General: Yes bladder normal to palpation <Luciano Barakat MD - Last Filed: 06/01/25 12:35> Back/Spine/Pelvis: Back: no CVA tenderness <MD Madalyn Parson Last Filed: 06/01/25 12:35> Skin: General skin exam: normal color <MD Madalyn Parson Last Filed: 06/01/25 12:35> Rashes: no rashes <MD Madalyn Parson Last Filed: 06/01/25 12:35> Wounds: no wounds <Luciaon Barakat MD - Last Filed: 06/01/25 12:35> Neuro: General: patient oriented x3, moves all extremities, no meningeal signs, no focal motor deficits and CN's II-XI intact bilaterally <Luciano Barakat MD - Last Filed: 06/01/25 12:35> Extrem: General: normal to inspection <Luciano Barakat MD - Last Filed: 06/01/25 12:35> Psych: Mental Status: mental status grossly normal <Luciano Barakat MD - Last Filed: 06/01/25 12:35> Affect: normal affect <Luciano Barakat MD - Last Filed: 06/01/25 12:35> Attitude: cooperative <Luciano Barakat MD - Last Filed: 06/01/25 12:35> Course Course Emergency Course: medical decision making narrative: Patient was evaluated by myself in the emergency department taking care from previous ER doctor. Additional history obtained from the patient was an independent historian and additional physical exam performed witnessed by nurse. Reviewed external records. CT abdomen and pelvis showed small pericardial effusion patient with some epigastric pain that radiates into her lower chest. Patient sees Cardiology at [facility] system. Patient after repeat assessment is doing well on repeat exam with some epigastric chest pain improved after GI cocktail and Zofran. . Symptoms have improved since arrival. Repeat vitals at 141/66 with a heart rate of 62 O2 sats of 99% on room air. Spoke with some hospitalist / Cardiology at [facility] that accepted the patient for transfer. Patient agrees with discussion and after shared medical decision making agrees for transfer. All questions answered to the patient's satisfaction. <Tahir Cope MD - Last Filed: 05/31/25 16:54> Vital Signs Vital signs: Vital Signs Temperature 36.3 C L 05/31/25 06:36 Pulse Rate 58 L 05/31/25 06:36 Respiratory Rate 18 05/31/25 06:36 Blood Pressure 146/73 H 05/31/25 06:36 Pulse Oximetry 97 05/31/25 06:36 Oxygen Delivery Room Air 05/31/25 06:36 Temperature 36.8 C 05/31/25 17:47 Pulse Rate 58 L 05/31/25 18:00 Respiratory Rate 16 05/31/25 17:47 Blood Pressure 117/58 L 05/31/25 17:47 Pulse Oximetry 95 05/31/25 17:47 Oxygen Delivery Room Air 05/31/25 08:05 <Luciano Barakat MD - Last Filed: 06/01/25 12:35> Vital Signs Temperature 36.3 C L 05/31/25 06:36 Pulse Rate 58 L 05/31/25 06:36 Respiratory Rate 18 05/31/25 06:36 Blood Pressure 146/73 H 05/31/25 06:36 Pulse Oximetry 97 05/31/25 06:36 Oxygen Delivery Room Air 05/31/25 06:36 Temperature 36.8 C 05/31/25 17:47 Pulse Rate 58 L 05/31/25 18:00 Respiratory Rate 16 05/31/25 17:47 Blood Pressure 117/58 L 05/31/25 17:47 Pulse Oximetry 95 05/31/25 17:47 Oxygen Delivery Room Air 05/31/25 08:05 <Tahir Cope MD - Last Filed: 05/31/25 16:54> MDM - Abdominal Pain MDM Narrative Medical decision making narrative: Patient is a 70-year-old female with epigastric pain for the past 2 days. We will do a GI workup at this time. I am transferring care to the next physician at shift change. <Luciano Barakat MD - Last Filed: 06/01/25 12:35> Lab Data Result diagrams: 05/31/25 06:59 05/31/25 06:59 <Luciano Barakat MD - Last Filed: 06/01/25 12:35> Labs: Lab Results 05/31/25 05/31/25 Range/Units 06:59 07:12 WBC 8.7 (4.8-10.8) K/mm3 RBC 4.19 L (4.20-5.40) M/mm3 Hgb 13.9 H (11.7-13.8) g/dL Hct 41.1 (35.0-42.0) % MCV 98.1 (78.0-102.0) fL MCH 33.2 H (27.0-31.0) pg MCHC 33.8 (32-36) g/dL RDW 12.6 (11.6-14.4) % Plt Count 289 (150-420) K/mm3 MPV 8.5 L (9.2-11.8) fl Immature Gran % (Auto) 0.3 H (0.0-0.0) % Neut % (Auto) 75.4 H (50.0-70.0) % Lymph % (Auto) 17.9 L (18.0-42.0) % [place] % (Auto) 5.0 (2.0-11.0) % Eos % (Auto) 0.7 L (1.0-6.0) % Baso % (Auto) 0.7 (0.0-1.0) % Lymph # (Auto) 1.55 (1.10-4.50) K/mm3 [place] # (Auto) 0.43 (0.10-0.90) K/mm3 Eos # (Auto) 0.06 (0.02-0.50) K/mm3 Baso # (Auto) 0.06 (0.00-0.10) K/mm3 Abs Immat Gran (auto) 0.03 H (0.00-0.00) K/mm3 Absolute Neuts (auto) 6.52 (1.70-7.20) K/mm3 Absolute Nucleated RBC 0.00 (0.00-0.00) K/mm3 Nucleated RBC % 0.0 (0-0.0) % PT 10.2 (9.50-12.1) Seconds INR 0.9 APTT 25.6 (23.9-30.70) Sec Sodium 140 (137-145) mmol/L Potassium 3.8 (3.4-5.0) mmol/L Chloride 107 (98-107) mmol/L Carbon Dioxide 29 (22-30) mmol/L Anion Gap 4 (4-12) mmol/L BUN 15 (7-17) mg/dL Creatinine 0.74 (0.7-1.0) mg/dL Estim Creat Clear Calc 52 ml/min Estimated GFR > 60 (59 - ) Glucose 111 H (65-110) mg/dL Calculated Osmolality 291 (285-295) mOsm/kg Calcium 9.4 (8.4-10.2) mg/dL Total Bilirubin 0.4 (0.2-1.3) mg/dL AST 20 (14-36) U/L ALT 10 (6-35) U/L Alkaline Phosphatase 73 (38-126) U/L Troponin I < 0.012 (0.000-0.034) ng/mL Total Protein 6.4 (6.3-8.2) g/dL Albumin 4.1 (3.5-5.1) g/dL Lipase 112 (23-300) U/L Urine Color Yellow (Yellow) Urine Appearance Clear (Clear) Urine pH 5.5 (5.0-8.0) Ur Specific [place] 1.025 H (1.010-1.020) Urine Protein Trace H (Negative) Urine Glucose (UA) Negative (Negative) Urine Ketones Negative (Negative) Ur Blood (Man) Trace-intact H (Negative) Urine Nitrate Negative (Negative) Urine Bilirubin Negative (Negative) Urine Urobilinogen 0.2 (0.2-1.0) mg/dL Leukocyte Esterase Rfl Negative (Negative) PRABHAKAR/UL Urine RBC 0-2 (0-2) /hpf Urine WBC 0-3 (0-3) /hpf Ur Squamous Epith Cells Rare (Few) /hpf Calcium Oxalate Crystal Present H (None) /hpf Urine Bacteria Trace (None) /hpf Urine Mucus Moderate H /lpf <Luciano Barakat MD - Last Filed: 06/01/25 12:35> Lab Results 05/31/25 05/31/25 Range/Units 06:59 07:12 WBC 8.7 (4.8-10.8) K/mm3 RBC 4.19 L (4.20-5.40) M/mm3 Hgb 13.9 H (11.7-13.8) g/dL Hct 41.1 (35.0-42.0) % MCV 98.1 (78.0-102.0) fL MCH 33.2 H (27.0-31.0) pg MCHC 33.8 (32-36) g/dL RDW 12.6 (11.6-14.4) % Plt Count 289 (150-420) K/mm3 MPV 8.5 L (9.2-11.8) fl Immature Gran % (Auto) 0.3 H (0.0-0.0) % Neut % (Auto) 75.4 H (50.0-70.0) % Lymph % (Auto) 17.9 L (18.0-42.0) % [place] % (Auto) 5.0 (2.0-11.0) % Eos % (Auto) 0.7 L (1.0-6.0) % Baso % (Auto) 0.7 (0.0-1.0) % Lymph # (Auto) 1.55 (1.10-4.50) K/mm3 [place] # (Auto) 0.43 (0.10-0.90) K/mm3 Eos # (Auto) 0.06 (0.02-0.50) K/mm3 Baso # (Auto) 0.06 (0.00-0.10) K/mm3 Abs Immat Gran (auto) 0.03 H (0.00-0.00) K/mm3 Absolute Neuts (auto) 6.52 (1.70-7.20) K/mm3 Absolute Nucleated RBC 0.00 (0.00-0.00) K/mm3 Nucleated RBC % 0.0 (0-0.0) % PT 10.2 (9.50-12.1) Seconds INR 0.9 APTT 25.6 (23.9-30.70) Sec Sodium 140 (137-145) mmol/L Potassium 3.8 (3.4-5.0) mmol/L Chloride 107 (98-107) mmol/L Carbon Dioxide 29 (22-30) mmol/L Anion Gap 4 (4-12) mmol/L BUN 15 (7-17) mg/dL Creatinine 0.74 (0.7-1.0) mg/dL Estim Creat Clear Calc 52 ml/min Estimated GFR > 60 (59 - ) Glucose 111 H (65-110) mg/dL Calculated Osmolality 291 (285-295) mOsm/kg Calcium 9.4 (8.4-10.2) mg/dL Total Bilirubin 0.4 (0.2-1.3) mg/dL AST 20 (14-36) U/L ALT 10 (6-35) U/L Alkaline Phosphatase 73 (38-126) U/L Troponin I < 0.012 (0.000-0.034) ng/mL Total Protein 6.4 (6.3-8.2) g/dL Albumin 4.1 (3.5-5.1) g/dL Lipase 112 (23-300) U/L Urine Color Yellow (Yellow) Urine Appearance Clear (Clear) Urine pH 5.5 (5.0-8.0) Ur Specific [place] 1.025 H (1.010-1.020) Urine Protein Trace H (Negative) Urine Glucose (UA) Negative (Negative) Urine Ketones Negative (Negative) Ur Blood (Man) Trace-intact H (Negative) Urine Nitrate Negative (Negative) Urine Bilirubin Negative (Negative) Urine Urobilinogen 0.2 (0.2-1.0) mg/dL Leukocyte Esterase Rfl Negative (Negative) PRABHAKAR/UL Urine RBC 0-2 (0-2) /hpf Urine WBC 0-3 (0-3) /hpf Ur Squamous Epith Cells Rare (Few) /hpf Calcium Oxalate Crystal Present H (None) /hpf Urine Bacteria Trace (None) /hpf Urine Mucus Moderate H /lpf <Tahir Cope MD - Last Filed: 05/31/25 16:54> Imaging Data Radiologist's impression: ITS Impressions Abdomen/Pelvis CT 05/31/25 08:22 IMPRESSION: 1. Small pericardial effusion. No acute intra-abdominal/pelvic process. <Luciano Barakat MD - Last Filed: 06/01/25 12:35> ITS Impressions Abdomen/Pelvis CT 05/31/25 08:22 IMPRESSION: 1. Small pericardial effusion. No acute intra-abdominal/pelvic process. <Tahir Cope MD - Last Filed: 05/31/25 16:54> ECG Data EKG #1: Attestation: I personally reviewed and interpreted this ECG as follows: <Luciano Barakat MD - Last Filed: 06/01/25 12:35> ECG completion date: 05/31/25 <Luciano Barakat MD - Last Filed: 06/01/25 12:35> ECG completion time: 07:13 <Luciano Barakat MD - Last Filed: 06/01/25 12:35> bradycardia, no ectopy, no ST changes, normal QRS, normal QT and NL axis <Luciano Barakat MD - Last Filed: 06/01/25 12:35> Discharge Plan Discharge Clinical Impression: Acute pericardial effusion <Luciano Barakat MD - Last Filed: 06/01/25 12:35> Patient Disposition: Acute Care Hospital <Luciano Barakat MD - Last Filed: 06/01/25 12:35> Condition: Guarded Prognosis <Luciano Barakat MD - Last Filed: 06/01/25 12:35> Patient Language: Moldovan <Luciano Barakat MD - Last Filed: 06/01/25 12:35> Prescriptions: No Action gabapentin 600 mg Tablet 600 mg PO DAILY nortriptyline 25 mg capsule 25 cap PO DAILY levothyroxine 50 mcg tablet 1.5 tablet PO DAILY pantoprazole 40 mg tablet,delayed release (DR/EC) 40 tablet PO DAILY trazodone 300 mg tablet 300 tablet PO BID escitalopram oxalate 20 mg tablet 20 tablet PO DAILY ondansetron 4 mg tablet,disintegrating 4 mg PO Q6H PRN (Reason: nausea and vomiting) Qty: 14 0RF <Luciano Barakat MD - Last Filed: 06/01/25 12:35> Follow-up/Referrals: Mary Jo,Robe Ring MD [Primary Care Provider] <Luciano Barakat MD - Last Filed: 06/01/25 12:35> Time of Disposition: 16:54 <Luciano Barakat MD - Last Filed: 06/01/25 12:35> 16:54 <Tahir Cope MD - Last Filed: 05/31/25 16:54>
--- NOTE | 2025-05-31 06:48 | ECG_ITS ---
Test Date: 2025-05-31 06:54:19 Measurements Intervals [place] Rate: 58 P: 68 MD: 143 QRS: 67 QRSD: 76 T: 70 QT: 440 QTc: 434 Interpretive Statements SINUS BRADYCARDIA BASELINE ARTIFACT- II, III BORDERLINE ECG Compared to ECG 10/28/2024 11:35:32 NO SIGNIFICANT CHANGE Electronically Signed On 05-31-2025 07:52:57 CDT by Franco Savage D.O.
[2025-05-31 07:02] LABS: Hematocrit 41.1 % (35.0-42.0); Hemoglobin 13.9 g/dL (11.7-13.8); Immature Granulocyte Percent A 0.3 % (0.0-0.0); Lymphocytes Absolute Auto 1.55 K/mm3 (1.10-4.50); Mean Corpuscular HGB Conc 33.8 g/dL (32-36); Mean Corpuscular Hemoglobin 33.2 pg (27.0-31.0); Mean Corpuscular Volume 98.1 fL (78.0-102.0); Nucleated Red Blood Cells Absolute Auto 0.00 K/mm3 (0.00-0.00); Nucleated Red Blood Cells Perc 0.0 % (0-0.0); Platelet Count Result 289 K/mm3 (150-420); Red Blood Count 4.19 M/mm3 (4.20-5.40); White Blood Count 8.7 K/mm3 (4.8-10.8)
--- NOTE | 2025-05-31 07:07 | PC.NURSE ---
Pt report given to ASHLEY Castro for continuation of care on day shift. EKG completed per RT and pt blood work drawn per phleb. Pt ambulatory to bathroom at this time without difficutly.
[2025-05-31 07:13] LABS: Lipase 112 U/L (23-300)
[2025-05-31 07:14] LABS: Alanine Aminotransferase 10 U/L (6-35); Albumin Level 4.1 g/dL (3.5-5.1); Alkaline Phosphatase 73 U/L (38-126); Anion Gap 4 mmol/L (4-12); Aspartate Amino Transferase 20 U/L (14-36); Bilirubin,Total 0.4 mg/dL (0.2-1.3); Blood Urea Nitrogen 15 mg/dL (7-17); Calcium 9.4 mg/dL (8.4-10.2); Carbon Dioxide 29 mmol/L (22-30); Chloride 107 mmol/L (98-107); Estimated CRCL calculation 52 ml/min; Estimated Glomerular Filt Rate > 60; Glucose 111 mg/dL (65-110); Osmolality Calculated 291 mOsm/kg (285-295); Potassium 3.8 mmol/L (3.4-5.0); Sodium 140 mmol/L (137-145); Total Protein 6.4 g/dL (6.3-8.2)
[2025-05-31 07:16] LABS: INR 0.9; Partial Thromboplastin Time 25.6 Sec (23.9-30.70); Prothrombin Time 10.2 Seconds (9.50-12.1)
[2025-05-31 07:17] LABS: Add Urine Microscopic? YES; Appearance Urine Clear (Clear); Glucose Urine UA Negative (Negative); Leukocyte Esterase Ur Negative LEU/UL (Negative); Nitrate Urine Negative (Negative); Specific Grav Ur 1.025 (1.010-1.020)
[2025-05-31 07:26] LABS: Troponin I < 0.012 ng/mL (0.000-0.034)
[2025-05-31] MEDS: MAG HYDROX/ALUMINUM HYD/SIMETH 30 ML, PHENobarb/HYOSCY/ATROPINE/SCOP 32.4 MG, LIDOCAINE... PO (07:45)
[2025-05-31] MEDS: ONDANSETRON HCL ODT 4 MG TABLET PO (08:21)
--- NOTE | 2025-05-31 10:58 | PC.NURSE ---
PT REQUESTED ITEMS FROM PERSONAL [employer] TRUCK PRIOR TO TRANSFER. ITEMS REMOVED FROM PERSONAL VEHICLE REQUESTED . 4 PACKS OF CIGARETTES, 1 GREEN BUMPER OPERATOR, 1 PHONE CHARGING CORD, 1 BUMPER OPERATOR CHARGING DEVICE. PLASTIC CASE WITH CHEWING GUM. NO OTHER ITEMS REMOVED FROM PERSONAL VEHICLE. KEYS AND ALL ITEMS RETURNED TO PT.
[2025-05-31] MEDS: ACETAMINOPHEN 325 MG TABLET 650 MG PO (15:01)
== END 2025-05-31 18:00 | disposition short-term general hospital (02) ==
PROVIDERS: Emergency Medicine; Emergency Provider Emergency Medicine; PCP Internal Medicine
DX: I31.39 Other pericardial effusion (noninflammatory) (principal); Z85.850 Personal history of malignant neoplasm of thyroid; Z85.3 Personal history of malignant neoplasm of breast
CPT/HCPCS: 36415; 74176; 80053; 81001; 83690; 84484; 85025; 85610; 85730; 93005; 99285; A9270